=== PATIENT | male | born 1985 | race Caucasian/White ===

== ENCOUNTER 2024-04-06 12:10 | Observation (INO) | payer MEDICAID, SELFPAY ==
[2024-04-06] VITALS (12 sets, daily range): BP systolic 151–229; BP diastolic 93–135; PULSE 87–118; RESP 18–24; TEMP 36.3–36.7; O2SAT 96–100
--- NOTE | ~2024-04-06 | CT_ITS ---
EXAMINATION: CT thoracic lumbar wo con DATE: 04/06/2024 14:42 INDICATION: trauma + sciatica pain . TECHNIQUE: Computed tomography (CT) of the thoracic and lumbar spine was performed without intravenou s contrast. The dose-length product was 2255.68 mGy-cm. COMPARISON: None FINDINGS: THORACIC SPINE: Vertebral body alignment intact. Vertebral body heights preserved. Multilevel mild degenerative disc disease and facet arthropathy. No severe central canal or neural foraminal narrowing. No traumatic ma lalignment or fracture. Visualized lung parenchyma is clear. Bilateral adrenal adenomas. LUMBAR SPINE: 5 nonrib-bearing lumbar-type vertebral bodies. Pedicles intact. 5 mm retrolisthesis at L5-S1, presuma jennifer on a degenerative basis. Multilevel degenerative disc disease, severe at L5-S1. Moderate mid and lower lumbar facet arthropathy. Multilevel moderate bilateral neural foraminal narrowing secondary to degenerative changes. No severe central canal narrowing. IMPRESSION: No acute fracture or traumatic malalignment detected in the thoracic or lumbar spine Reviewed, dictated and finalized at location K.
--- NOTE | ~2024-04-06 | XR_ITS ---
EXAMINATION: XR chest 1V portable Exam Date/Time: 04/06/2024 14:15 CDT HISTORY: cp Comparison: None. RESULT: Lines, tubes, and devices: None. Lungs and pleura: Clear. Cardiomediastinal silhouette: Normal. Other: No acute osseous or upper abdominal finding. IMPRESSION: No acute cardiopulmonary process. Reviewed, dictated and finalized at location K.
--- NOTE | 2024-04-06 13:44 | ECG_ITS ---
Test Date: 2024-04-06 14:10:23 Measurements Intervals [place] Rate: 101 P: 24 ID: 170 QRS: 12 QRSD: 178 T: 38 QT: 393 QTc: 509 Interpretive Statements SINUS TACHYCARDIA LEFT BUNDLE BRANCH BLOCK [120+ ms QRS DURATION, 80+ ms Q/S IN V1/V2, 85+ ms R IN I/aVL/V5/V6] No previous ECG available for comparison Electronically Signed On 04-06-2024 16:25:21 CDT by Marcos Brothers M.D.
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
[2024-04-06 14:03] LABS: Basophils Absolute Auto 0.1 K/mm3 (0.0-0.1); Basophils Percent Auto 0.7 % (0.2-1.2); Eosinophils Absolute Auto 0.2 K/mm3 (0-0.3); Eosinophils Percent Auto 2.2 % (0-4.4); Hematocrit 46.8 % (42.0-52.0); Hemoglobin 16.2 g/dL (14.0-18.0); Immature Granulocyte Absolute 0.01 K/mm3 (0.00-0.031); Immature Granulocyte Percent A 0.1 % (0-0.5); Lymphocytes Percent Auto 18.4 % (18.3-44.2); Mean Corpuscular HGB Conc 34.6 g/dl (32-36); Mean Corpuscular Hemoglobin 30.6 pg (26-34); Mean Corpuscular Volume 88.5 fl (80-100); Mean Platelet Volume 12.4 fl (7.4-10.4); Monocytes Absolute Auto 0.5 K/mm3 (0.1-0.6); Monocytes Percent Auto 5.9 % (2.6-8.5); Neutrophils Absolute Auto 6.3 K/mm3 (1.3-6.7); Neutrophils Percent Auto 72.7 % (45.5-73.1); Platelet Count Result 170 k/mm3 (150-375); Red Blood Count 5.29 M/mm3 (4.6-6.20); White Blood Count 8.7 K/mm3 (4.5-10.0)
--- NOTE | 2024-04-06 14:10 | PC.NURSE ---
while in room doing assessment regarding sciatica pt reports he just moved here from [place] pt reports he is out of all medications. Pt then goes into extensive medical history reported elvated BP previous pacemaker then pacemaker removed due to infected leads. Pt reports he was on Pallative care in [place] regarding CHF
[2024-04-06 14:15] LABS: Alanine Aminotransferase 25 U/L (6-50); Albumin Level 4.4 g/dL (3.5-5.1); Alkaline Phosphatase 66 U/L (38-126); Anion Gap 7 mmol/L (4-12); Aspartate Amino Transferase 25 U/L (17-59); Bilirubin,Total 0.7 mg/dL (0.2-1.3); Blood Urea Nitrogen 9 mg/dL (9-20); Calcium 8.8 mg/dL (8.4-10.2); Carbon Dioxide 27 mmol/L (22-30); Chloride 106 mmol/L (98-107); Estimated CRCL calculation 180 ml/min; Estimated Glomerular Filt Rate > 60; Glucose 113 mg/dL (65-110); Potassium 3.4 mmol/L (3.4-5.0); Sodium 140 mmol/L (137-145)
[2024-04-06 14:26] LABS: NT Pro B Type Natriuretic Pept 308 pg/mL (19.9-100); Troponin I 0.012 ng/mL (0.000-0.034)
[2024-04-06 14:37] LABS: D Dimer < 0.27 ug/mL (<0.48)
[2024-04-06] MEDS: MORPHINE SULFATE (*CRX) 4 MG/ML INJ IV PUSH (15:09)
--- NOTE | 2024-04-06 15:18 | ECG_ITS ---
Test Date: 2024-04-06 15:23:35 Measurements Intervals [place] Rate: 109 P: 13 UT: 172 QRS: 2 QRSD: 172 T: 51 QT: 389 QTc: 525 Interpretive Statements SINUS TACHYCARDIA LEFT BUNDLE BRANCH BLOCK [120+ ms QRS DURATION, 80+ ms Q/S IN V1/V2, 85+ ms R IN I/aVL/V5/V6] Compared to ECG 04/06/2024 14:10:23 No significant changes Electronically Signed On 04-06-2024 16:25:35 CDT by Marcos Brothers M.D.
--- NOTE | 2024-04-06 15:27 | PC.NURSE ---
pt began having dull midsternal chest pain, patient visibly uncomfortable and having increased work of breathing. EKG ordered and showed to Dr. Gold.
[2024-04-06] MEDS: LORazepam INJ (*CRX) 2 MG/ML VIAL 0.5 MG IV PUSH (15:43)
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
[2024-04-06 20:52] LABS: Troponin I 0.016 ng/mL (0.000-0.034)
[2024-04-06] MEDS: MAGNESIUM OXIDE 400 MG TABLET PO (23:27)
[2024-04-06] MEDS: CYCLOBENZAPRINE HCL 10 MG TABLET PO (23:27)
[2024-04-06] MEDS: ASPIRIN 81 MG ENTERIC TABLET PO (23:28)
[2024-04-06] MEDS: FUROSEMIDE 20 MG TABLET PO (23:28)
[2024-04-06] MEDS: hydrALAZINE HCL 50 MG TABLET PO (23:28)
[2024-04-06] MEDS: WATER FOR IRRIGATION, STERILE 500 ML BOTTLE (23:29)
[2024-04-06] MEDS: MICONAZOLE NITRATE 2% CREAM 30 GM TUBE 1 APPLIC TOPICAL (23:29)
[2024-04-06] MEDS: LORazepam (*CRX) 1 MG TABLET PO (23:29)
[2024-04-06] MEDS: SACUBITRIL/VALSARTAN 97-103 MG TABLET 1 TAB PO (23:29)
[2024-04-06] MEDS: HYDROcodone/acetaminophen (*CRX) 10-325 MG TABLET 1 TAB PO (23:32)
[2024-04-07] VITALS (12 sets, daily range): BP systolic 120–169; BP diastolic 61–96; PULSE 71–132; RESP 12–23; TEMP 36.1–36.2; O2SAT 94–98
[2024-04-07 00:11] LABS: Troponin I 0.019 ng/mL (0.000-0.034)
[2024-04-07 01:46] LABS: Add Urine Microscopic? YES; Appearance Urine Clear (Clear); Bacteria Urine 4+ /hpf; Bilirubin Urine Negative (Negative); Blood Urine Negative (Negative); Color Urine Yellow (Yellow); Glucose Urine UA Negative (Negative); Ketones Urine Negative (Negative); Leukocyte Esterase Ur Trace LEU/UL (Negative); Need Manual Microscopic Reviewed; Nitrate Urine Negative (Negative); Non Pathogenic Casts 0-2; Protein Urine Negative (Negative); RBC Urine 0-2 /hpf (0-2); Specific Grav Ur 1.013 (1.001-1.035); Squamous Epithelial Cell Urine None Seen /hpf (Few); Urobilinogen Urine 0.2 mg/dL (<2.0)
[2024-04-07 01:50] LABS: Amphetamine Screen Urine Negative (Negative); Barbiturate Screen Urine Negative (Negative); Benzodiazepines Screen Urine Negative (Negative); Cannabinoid Screen Urine Negative (Negative); Cocaine Screen Urine Negative (Negative); Methadone Screen Urine Negative (Negative); Opiate Screen Urine Positive (Negative); Phencyclidine Screen Urine Negative (Negative)
[2024-04-07 02:13] LABS: Influenza A QL RT-PCR Negative (Negative); Influenza B QL RT-PCR Negative (Negative); RSV RNA, RT-PCR Negative (Negative); SARS-CoV-2 RNA PCR Negative (Negative)
[2024-04-07 04:49] LABS: Glucose Point of Care 118 mg/dl (65-105)
[2024-04-07 04:55] LABS: Basophils Absolute Auto 0.1 K/mm3 (0.0-0.1); Basophils Percent Auto 0.6 % (0.2-1.2); Eosinophils Absolute Auto 0.3 K/mm3 (0-0.3); Eosinophils Percent Auto 3.4 % (0-4.4); Hemoglobin 14.8 g/dL (14.0-18.0); Immature Granulocyte Absolute 0.02 K/mm3 (0.00-0.031); Immature Granulocyte Percent A 0.2 % (0-0.5); Lymphocytes Absolute Auto 2.79 K/mm3 (0.9-3.2); Lymphocytes Percent Auto 31.9 % (18.3-44.2); Mean Corpuscular HGB Conc 33.6 g/dl (32-36); Mean Corpuscular Hemoglobin 30.3 pg (26-34); Mean Corpuscular Volume 90.2 fl (80-100); Mean Platelet Volume 12.5 fl (7.4-10.4); Monocytes Absolute Auto 0.6 K/mm3 (0.1-0.6); Monocytes Percent Auto 6.7 % (2.6-8.5); Neutrophils Percent Auto 57.2 % (45.5-73.1); Platelet Count Result 154 k/mm3 (150-375); Red Blood Count 4.88 M/mm3 (4.6-6.20); Red Cell Distribution Width 14.3 % (11.5-14.5); White Blood Count 8.8 K/mm3 (4.5-10.0)
[2024-04-07 05:12] LABS: Alanine Aminotransferase 22 U/L (6-50); Albumin Level 3.7 g/dL (3.5-5.1); Alkaline Phosphatase 52 U/L (38-126); Anion Gap 5 mmol/L (4-12); Aspartate Amino Transferase 22 U/L (17-59); Blood Urea Nitrogen 10 mg/dL (9-20); Calcium 8.5 mg/dL (8.4-10.2); Carbon Dioxide 31 mmol/L (22-30); Chloride 103 mmol/L (98-107); Estimated CRCL calculation 204 ml/min; Estimated Glomerular Filt Rate > 60; Glucose 98 mg/dL (65-110); Sodium 139 mmol/L (137-145)
[2024-04-07 05:27] LABS: Hemoglobin A1C 5.3 % (<5.7)
[2024-04-07 05:37] LABS: Cortisol Random 1.19 ug/dL
[2024-04-07] MEDS: CYCLOBENZAPRINE HCL 10 MG TABLET PO ×3 (06:00→20:22)
[2024-04-07 08:45] LABS: Glucose Point of Care 95 mg/dl (65-105)
[2024-04-07] MEDS: POTASSIUM CHLORIDE 20 MEQ ER TABLET PO (08:47)
[2024-04-07] MEDS: EMTRICITABINE-TENOFOVIR 100 MG-150 MG TABLET 2 TAB PO (08:47)
[2024-04-07] MEDS: SPIRONOLACTONE 25 MG TABLET PO (08:50)
[2024-04-07] MEDS: LORazepam (*CRX) 1 MG TABLET PO ×3 (08:50→17:35)
[2024-04-07] MEDS: DULoxetine HCL 30 MG CAPSULE.DR PO (08:50)
[2024-04-07] MEDS: amLODIPine BESYLATE 10 MG TABLET PO (08:50)
[2024-04-07] MEDS: MAGNESIUM OXIDE 400 MG TABLET PO ×2 (08:50→17:35)
[2024-04-07] MEDS: predniSONE 20 MG TABLET 40 MG PO (08:50)
[2024-04-07] MEDS: FUROSEMIDE 20 MG TABLET PO ×2 (08:50→17:35)
[2024-04-07] MEDS: LORATADINE 10 MG TABLET PO (08:50)
[2024-04-07] MEDS: TAMSULOSIN HCL 0.4 MG CAPSULE PO (08:51)
[2024-04-07] MEDS: SACUBITRIL/VALSARTAN 97-103 MG TABLET 1 TAB PO ×2 (08:51→20:22)
[2024-04-07] MEDS: ASPIRIN 81 MG ENTERIC TABLET PO ×2 (08:51→17:35)
[2024-04-07] MEDS: LIDOCAINE 5% PATCH 1 PATCH TRANSDERM (08:51)
[2024-04-07] MEDS: CHOLECALCIFEROL 5,000 UNITS TABLET 5000 UNITS PO (08:51)
--- NOTE | 2024-04-07 08:53 | PM.IMPN ---
Progress Note: A&P Assessment and Plan (1) Syncope: Qualifiers: Syncope type: unspecified Qualified Code(s): R55 - Syncope and collapse Code(s): R55 - Syncope and collapse Status: Acute Assessment and Plan: - EKG, initial: Sinus tachycardia, rate 101, left bundle-branch block. No previous available for comparison. - EKG, repeat (1): No significant changes when compared to prior, rate 109. - CXR: No acute cardiopulmonary process. - Troponin: 0.012 -> 0.016, and 3rd troponin ordered - add TSH, UA, viral PCR, UDS - no echo on file, ordered - previously told his syncopal episodes were secondary to his CHF - telemetry monitoring (2) Sciatica: Qualifiers: Laterality: left Qualified Code(s): M54.32 - Sciatica, left side Code(s): M54.30 - Sciatica, unspecified side Status: Acute Assessment and Plan: - analgesics p.r.n. - thoracic/lumbar CT: No acute fracture or traumatic malalignment detected in the thoracic or lumbar spine. Multilevel degenerative disc disease. - will trial lidocaine patch and prednisone course (3) Hypertension, uncontrolled: Code(s): I10 - Essential (primary) hypertension Status: Acute Assessment and Plan: - chronic, currently 189/116 - continue home medications: start in stepped fashion to avoid hypotension. Hydralazine 100 mg b.i.d., will start as 50 mg q.i.d. this evening Entresto 97-103 b.i.d., start this evening Amlodipine 10 mg daily, start tomorrow morning Coreg 25 mg b.i.d., start tomorrow evening - takes his BP 3 times per day, 3 ways (sitting/standing/laying) and has instructions on what to take or what to hold based off those numbers - monitor 04/07 based on his report- hydralazine was causing the most side effects for him with feeling so dizzy, he would have to sit down in order not to pass out. We will hold on and not restart hydralazine at this time as entresto, coreg would be sufficient. May even hold amlodipine as well and start on jardiance 10 mg as standard of care for CHF pts. (4) Hypoglycemia: Code(s): E16.2 - Hypoglycemia, unspecified Status: Acute Assessment and Plan: - check A1C - glucose ACHS - hypoglycemia protocol in place - check random cortisol (5) Apnea: Code(s): R06.81 - Apnea, not elsewhere classified Status: Acute Assessment and Plan: - continue home BiPAP (6) Hypokalemia: Code(s): E87.6 - Hypokalemia Status: Acute Assessment and Plan: -po replacement - monitor with daily labs Plan Patient is requesting a referral to specialist he saw previously ([facility], pulmonology, or ec teacher), initially started care with [facility] based off of recommendation of his neighbor. However does not have appointment until August, no appointments available sooner than this. Requesting refills of his medications to tide him over to this appointment. May also need a care coordination consultation to set up palliative care in [place], was on this in [place]. After shared decision making with patient, he is requesting no further workup for the syncopal events given the known congestive heart failure which has previously caused these events. Diet: Heart healthy GI Prophylaxis: Not currently indicated DVT Prophylaxis: SCDs Lines: Peripheral Code Status: DNR Time Spent With Patient Time with patient: Greater than 35 minutes Subjective Date/time seen: 04/07/24 08:53 Interval history: retrieved from H/P: 38 y/o M presents here with ground-level fall with PMH of CHF, HTN, TIA, pacemaker (reversed secondary to infection in 2022), cardiomyopathy, COPD, diverticulosis, DDD, sciatica, anemia, hypoglycemia, blind in right eye, and anxiety/depression. The patient presents here from home via personal vehicle (neighbor drove him, unable to drive due to blindness in his left eye and due to frequen
[2024-04-07] MEDS: FLUTICASONE PROPIONATE 0.05% NA SPR 16 GM BTL (*BKC) 2 SPRAY NASAL (08:54)
[2024-04-07] MEDS: MICONAZOLE NITRATE 2% CREAM 30 GM TUBE 1 APPLIC TOPICAL ×2 (08:59→20:22)
[2024-04-07] MEDS: hydrALAZINE HCL 50 MG TABLET PO (09:02)
[2024-04-07 12:22] LABS: Glucose Point of Care 143 mg/dl (65-105)
[2024-04-07 17:15] LABS: Glucose Point of Care 194 mg/dl (65-105)
[2024-04-07] MEDS: carvediloL 25 MG TABLET PO (20:22)
[2024-04-07] MEDS: HYDROcodone/acetaminophen (*CRX) 10-325 MG TABLET 1 TAB PO (20:51)
[2024-04-07 21:10] LABS: Glucose Point of Care 143 mg/dl (65-105)
[2024-04-08] VITALS (14 sets, daily range): BP systolic 121–140; BP diastolic 69–81; PULSE 60–84; RESP 11–20; TEMP 36.6–36.8; O2SAT 92–97
--- NOTE | 2024-04-08 | ECHO_ITS ---
Patient Info Name: Jesus Alberto Olivas Age: 38 years : 1985 Gender: Male Ht: 70 in Wt: 410 lbs BSA: 3.14 m2 HR: 74 bpm BP: 121 / 70 mmHg Heart Rhythm: Sinus Rhythm Technical Quality: Poor Exam Date: 04/08/2024 9:44 AM Exam Location: Echo Lab Patient Status: Inpatient Admit Date: 04/06/2024 Staff Ordering Physician: Velma Benavides APRN Dirt Supervisor: Judith Shoemaker RDCS Attending Provider: Miah Herman MD Referring Physician: Kennedy FITZPATRICK; Exam Type: CA echo dop color flow w con Study Info Indications - syncope Complete two-dimensional, color flow and Doppler transthoracic echocardiogram is performed with contrast to opacify the left ventricle and to improve the deliniation of the left ventricle endocardial borders. Reason for Poor Study: poor echocardiographic windows Summary 1. Technically difficult echocardiogram because of obesity, definity contrast used to improve endocardial visualization. 2. Mildly reduced left ventricular systolic function with abnormal septal motion consistent with bundle branch block. 3. No apparent valvular dysfunction. Left Ventricle Left ventricular chamber dimension is normal. Left ventricular systolic function is mildly reduced, estimated at 45-50%. Left ventricular septal wall motion is abnormal with septal motion related to bundle branch block. The left ventricular diastolic function is indeterminate. Right Ventricle Right ventricular chamber dimension is normal. Left Atria Left atrial chamber dimension is normal. Right Atria Right atrial chamber dimension is not well visualized. Aortic Valve The aortic valve is normal. Pulmonic Valve The pulmonic valve is not well visualized. Mitral Valve The mitral valve has normal leaflets. Tricuspid Valve The tricuspid valve leaflets are not well visualized. Pericardium/Pleural The pericardium appears normal. Aorta The aortic root size at the sinus of Valsalva is normal. Left Ventricular Outflow Tract Name Value Normal LVOT Doppler LVOT Peak Gradient 2 mmHg LVOT Mean Gradient 1 mmHg LVOT VTI 13.00 cm LVOT VTI/AV VTI Ratio 0.59 Pulmonic Valve Name Value Normal PV Doppler PV Peak Gradient 4 mmHg Mitral Valve Name Value Normal MV Doppler MV Decel [place] 670.66 cm/s2 MV PHT 0 s MV Area (PHT) 5.88 cm2 4.00-5.00 MV Diastolic Function MV E Peak Velocity 86.56 cm/s MV A Peak Velocity 90.03 cm/s MV E/A 0.96 MV Decel Time
[2024-04-08] MEDS: CYCLOBENZAPRINE HCL 10 MG TABLET PO ×3 (05:26→19:55)
[2024-04-08 08:19] LABS: Glucose Point of Care 102 mg/dl (65-105)
[2024-04-08] MEDS: DULoxetine HCL 30 MG CAPSULE.DR PO (08:44)
[2024-04-08] MEDS: predniSONE 20 MG TABLET 40 MG PO (08:44)
[2024-04-08] MEDS: CHOLECALCIFEROL 5,000 UNITS TABLET 5000 UNITS PO (08:44)
[2024-04-08] MEDS: SPIRONOLACTONE 25 MG TABLET PO (08:44)
[2024-04-08] MEDS: MAGNESIUM OXIDE 400 MG TABLET PO ×2 (08:44→17:28)
[2024-04-08] MEDS: POTASSIUM CHLORIDE 20 MEQ ER TABLET PO (08:44)
[2024-04-08] MEDS: TAMSULOSIN HCL 0.4 MG CAPSULE PO (08:45)
[2024-04-08] MEDS: LORATADINE 10 MG TABLET PO (08:45)
[2024-04-08] MEDS: ASPIRIN 81 MG ENTERIC TABLET PO ×2 (08:45→17:29)
[2024-04-08] MEDS: carvediloL 25 MG TABLET PO ×2 (08:45→19:55)
[2024-04-08] MEDS: EMPAGLIFLOZIN 10 MG TABLET PO (08:45)
[2024-04-08] MEDS: SACUBITRIL/VALSARTAN 97-103 MG TABLET 1 TAB PO ×2 (08:45→19:55)
[2024-04-08] MEDS: FUROSEMIDE 20 MG TABLET PO ×2 (08:45→17:29)
[2024-04-08] MEDS: EMTRICITABINE-TENOFOVIR 100 MG-150 MG TABLET 2 TAB PO (08:45)
[2024-04-08] MEDS: LIDOCAINE 5% PATCH 1 PATCH TRANSDERM (08:46)
[2024-04-08] MEDS: LORazepam (*CRX) 1 MG TABLET PO ×3 (08:46→17:28)
[2024-04-08] MEDS: MICONAZOLE NITRATE 2% CREAM 30 GM TUBE 1 APPLIC TOPICAL ×2 (08:48→23:00)
[2024-04-08] MEDS: FLUTICASONE PROPIONATE 0.05% NA SPR 16 GM BTL (*BKC) 2 SPRAY NASAL (08:48)
[2024-04-08] MEDS: PERFLUTREN LIPID MICROSPHERES 1.5 ML VIAL DILUTED TO 10 ML TOTAL VOLUME IV PUSH (09:30)
--- NOTE | 2024-04-08 10:14 | P.DS_ITS ---
DS: Summary Time Spent with Patient Time attestation: Total time spent providing and/or coordinating discharge services: DS: Data Data Completed and Pending Labs on day of discharge: Labs from last 24 hours 04/08/24 04/07/24 04/07/24 08:10 20:45 17:02 POC Capillary Glucose 102 143 H 194 H 04/07/24 12:13 POC Capillary Glucose 143 H Discharge Plan Discharge Consulting providers: Obdulio Wagner Discharge Medications: No Action aspirin 81 mg PO BID Flonase 50 mcg intranasal BID Entresto 97 - 103 mg PO BID cetirizine 10 mg PO BID cyclobenzaprine 10 mg PO TID duloxetine 30 mg PO DAILY spironolactone 25 mg PO DAILY carvedilol 25 mg PO BID lorazepam 1 mg PO TID amlodipine 10 mg PO DAILY Hydralazide 100 mg PO BID furosemide 20 mg PO BID Latuda 40 mg PO BID emtricitabine-tenofovir (TDF) 300 mg PO DAILY Magnesium (oxide/AA chelate) 400 mg PO BID potassium Cl-calcium phos-mag 20 meq PO DAILY tamsulosin 0.4 mg PO DAILY Vitamin B-12 1,000 mg PO DAILY Vitamin D3 50,000 units PO DAILY albuterol 2 puff PRN albuterol sulfate 2.5 mg TID hydrocodone-acetaminophen 10 mg PO TID Voltaren 1 % topical PRN clotrimazole 1 mg topical PRN (DME) Accu-Chek Guide test strips Date of admission: 04/06/24 16:07 Primary Care Provider: PHYSICIAN,ASSISTANT CREDIT MANAGER Admitting Provider: Miah Herman Attending physician on admission: Miah Herman Condition: Stable
[2024-04-08 10:55] LABS: Anion Gap 7 mmol/L (4-12); Blood Urea Nitrogen 14 mg/dL (9-20); Carbon Dioxide 31 mmol/L (22-30); Chloride 101 mmol/L (98-107); Estimated CRCL calculation 180 ml/min; Estimated Glomerular Filt Rate > 60; Glucose 83 mg/dL (65-110); Magnesium 2.2 mg/dL (1.6-2.3); Potassium 3.1 mmol/L (3.4-5.0); Sodium 139 mmol/L (137-145)
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
[2024-04-08 12:00] LABS: Glucose Point of Care 117 mg/dl (65-105)
--- NOTE | 2024-04-08 12:03 | IVDEFINITY ---
Prior to administration of IV Definity the patient was educated on the risks and benefits of the imaging enhancing agent including potential adverse side effects. The patient verbalized understanding. Allergies were verified. No exclusion criteria were identified and at least one of the following inclusion criteria were met: 1) physician request, 2) patient technically difficult to image (per the [place] [employer]chocardi[employer] guidelines of two or more segments not discernable within the apical view), or 3) questionable left ventricular function. ?
[2024-04-08] MEDS: NITROFURANTOIN MONOHYD MACROCR 100 MG CAP PO ×2 (12:46→19:56)
[2024-04-08] MEDS: POTASSIUM CHLORIDE 10 MEQ ER TABLET 30 MEQ PO ×2 (12:46→17:28)
--- NOTE | 2024-04-08 13:18 | PM.CNCAR ---
Assessment and Plan Assessment and plan (1) Heart failure: Code(s): I50.9 - Heart failure, unspecified Status: Acute Plan 1. Chronic systolic heart failure NYHA II, Stage C TTE (04/08/2024) LViDD 6.38, EF 45-50% Echo pending today Nonischemic cardiomyopathy It is my clinical impression that Mr. Granda has nonischemic cardiomyopathy the etiology of which is unclear his thyroid function is normal. He is on Truvada but apparently it is for prophylaxis for HIV. He never had a cardiac MRI in the past -diuretics: On Lasix 20 mg twice daily. Consider switching him to 40 mg once a day at 20 mg once a day -ARNI: Continue Entresto 97-103 po BID - BB: Continue carvedilol 25 mg twice a day - AA: Continue spironolactone, 25 mg once a day check potassium levels week after discharge - SGLT2 Inhibitors: Increase dose of Jardiance to 25 mg once daily -continue above guideline directed medical therapy what failure -his QRS is broad and I think he may benefit from a BiVICD. Initially discussed and we will revisit this discussion in the clinic -consider sending serum ferritin, HIV serology History of Present Illness History of Present Illness Consult date/time: 04/08/24 13:18 Mr Granda is a pleasant 38-year-old gentleman who recently moved to [place] from [place]. 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 He was diagnosed to have congestive heart failure and nonischemic cardiomyopathy in 2019 in [place]. He underwent cardiac catheterization which as per him showed normal coronaries. He underwent a Bi V ICD implantation in 2019 which was subsequently removed in 2022 after got infected. As per the patient is initially it was 19% which recovered after a Bi V and subsequently his last EF was 45%. That is an echo pending today He is admitted with what appears to be a fall secondary to pain due to sciatica Cardiology consulted to help in the management of his CHF and cardiomyopathy. He denies any chest pain Chronic stable dyspnea He denies any dizziness, palpitation, presyncope or syncope He denies any bleeding from any source Compliant with his medications He is currently trying to get medicated L&I to help with and chewing follow-up with Cardiology and to help with his medications Nonsmoker Rare alcohol intake No family history of CHF Male having sex with male Requesting physician: Sandy Moses APRN Consult reason: congestive heart failure Reason For Visit: fall two days ago [facility] Past Medical History Medical History (Updated 04/08/24 @ 12:08 by Seth Monet APRN) Anemia Anxiety and depression Apnea Cardiomyopathy CHF (congestive heart failure) COPD (chronic obstructive pulmonary disease) DDD (degenerative disc disease) Diverticulosis Heart failure History of pacemaker HTN (hypertension) Osteoarthritis Panic attacks Sciatica TIA (transient ischemic attack) UTI (urinary tract infection) Surgical History Surgical History History of intestinal surgery r/t abscess History of tonsillectomy and adenoidectomy Social History Social History Smoking status: Never smoker Second hand tobacco smoke exposure: Yes Alcohol intake: current Drinks per week: 0 Substance use: never Substance use type: does not use Do You Feel Safe in your Home?: Yes Lack of Transportation: YES Lack of Food: Often True Current Housing: I Do Not Have Housing Concerned About Future Housing: No Difficulty Paying Gas/Electric Bills: YES Difficulty Paying for Meds: YES Currently Unemployed: YES Education: High School Diploma/GED Difficulty w/ Childcare or Family Care: No Spiritual care concerns: Yes (Anab[employer]ist, last rights upon ) Meds Home Medications and Al
[2024-04-08 16:58] LABS: Glucose Point of Care 149 mg/dl (65-105)
[2024-04-08] MEDS: HYDROcodone/acetaminophen (*CRX) 10-325 MG TABLET 1 TAB PO (19:55)
[2024-04-09] VITALS: PULSE 64
[2024-04-09 04:00] VITALS: PULSE 67
[2024-04-09 06:00] VITALS: BP 114/55; PULSE 67; RESP 22; TEMP 36.7; O2SAT 97
[2024-04-09] MEDS: CYCLOBENZAPRINE HCL 10 MG TABLET PO ×2 (06:01→13:40)
[2024-04-09 07:26] LABS: Anion Gap 7 mmol/L (4-12); Blood Urea Nitrogen 16 mg/dL (9-20); Calcium 8.9 mg/dL (8.4-10.2); Carbon Dioxide 29 mmol/L (22-30); Chloride 103 mmol/L (98-107); Estimated CRCL calculation 204 ml/min; Estimated Glomerular Filt Rate > 60; Glucose 92 mg/dL (65-110); Potassium 3.6 mmol/L (3.4-5.0); Sodium 139 mmol/L (137-145)
[2024-04-09 08:04] VITALS: PULSE 62
[2024-04-09 08:04] LABS: HIV 1/2 Ab P24 Ag Result Negative (Negative)
[2024-04-09] MEDS: HYDROcodone/acetaminophen (*CRX) 10-325 MG TABLET 1 TAB PO (08:37)
[2024-04-09 08:38] LABS: Glucose Point of Care 88 mg/dl (65-105)
[2024-04-09] MEDS: CHOLECALCIFEROL 5,000 UNITS TABLET 5000 UNITS PO (08:39)
[2024-04-09] MEDS: SPIRONOLACTONE 25 MG TABLET PO (08:39)
[2024-04-09] MEDS: SACUBITRIL/VALSARTAN 97-103 MG TABLET 1 TAB PO (08:39)
[2024-04-09] MEDS: LORATADINE 10 MG TABLET PO (08:39)
[2024-04-09] MEDS: ASPIRIN 81 MG ENTERIC TABLET PO (08:39)
[2024-04-09] MEDS: FUROSEMIDE 20 MG TABLET PO (08:39)
[2024-04-09] MEDS: EMTRICITABINE-TENOFOVIR 100 MG-150 MG TABLET 2 TAB PO (08:39)
[2024-04-09] MEDS: DULoxetine HCL 30 MG CAPSULE.DR PO (08:39)
[2024-04-09] MEDS: NITROFURANTOIN MONOHYD MACROCR 100 MG CAP PO (08:39)
[2024-04-09] MEDS: LORazepam (*CRX) 1 MG TABLET PO ×2 (08:40→13:40)
[2024-04-09] MEDS: FLUTICASONE PROPIONATE 0.05% NA SPR 16 GM BTL (*BKC) 2 SPRAY NASAL (08:40)
[2024-04-09] MEDS: carvediloL 25 MG TABLET PO (08:40)
[2024-04-09] MEDS: LIDOCAINE 5% PATCH 1 PATCH TRANSDERM (08:40)
[2024-04-09] MEDS: MAGNESIUM OXIDE 400 MG TABLET PO (08:40)
[2024-04-09] MEDS: predniSONE 20 MG TABLET 40 MG PO (08:40)
[2024-04-09] MEDS: TAMSULOSIN HCL 0.4 MG CAPSULE PO (08:40)
[2024-04-09] MEDS: EMPAGLIFLOZIN 25 MG TABLET PO (08:40)
[2024-04-09] MEDS: MICONAZOLE NITRATE 2% CREAM 30 GM TUBE 1 APPLIC TOPICAL (08:41)
[2024-04-09] MEDS: DICLOFENAC SODIUM 1% 100 GM GEL (*BKC) 1 APPLIC TOPICAL (08:41)
--- NOTE | 2024-04-09 11:41 | PM.PNCARD ---
Progress Note: A&P Assessment and Plan (1) Heart failure: Code(s): I50.9 - Heart failure, unspecified Status: Acute Plan 1. Chronic systolic heart failure NYHA II, Stage C TTE (04/08/2024) LViDD 6.38, EF 45-50% Nonischemic cardiomyopathy It is my clinical impression that Mr. Granda has nonischemic cardiomyopathy the etiology of which is unclear his thyroid function is normal. He is on Truvada but apparently it is for prophylaxis for HIV. He never had a cardiac MRI in the past -diuretics: On Lasix 20 mg twice daily. Consider switching him to 40 mg once a day at 20 mg once a day -ARNI: Continue Entresto 97-103 po BID - BB: Continue carvedilol 25 mg twice a day - AA: Continue spironolactone, 25 mg once a day check potassium levels week after discharge - SGLT2 Inhibitors: Increase dose of Jardiance to 25 mg once daily -continue above guideline directed medical therapy what failure -TTE (04/08/2024) EF 45-50%, no need for a BIv ICD - Follow-up with Cardiology as an outpatient - Cardiology will sign off. Please call us if there are any questions or concerns Subjective Date/time seen: 04/09/24 11:41 Interval history: No acute events overnight n good GDMT for HF Exam Const: General: comfortable, no acute distress, alert and awake Orientation/consciousness: patient oriented x3 HENMT: Head: normal to inspection Eyes: General: appearance normal, both eyes and all related structures Pupils: Equal, round and reactive pupils present Neck: Neck: normal visual inspection, supple and no JVD Carotids: normal carotid upstroke Resp: Effort & Inspection: normal respiratory effort Auscultation: clear to auscultation bilaterally Cardio: Rate: regular rate Rhythm: regular rhythm Heart sounds: S1 normal heart sound present, S2 normal heart sound present and no murmurs GI: Auscultation: normal bowel sounds Skin: General skin exam: normal color Neuro: General: patient oriented x3 Cranial nerves: Yes Equal, round and reactive pupils present Extrem: General: normal to inspection Psych: Appearance: grossly normal Mental Status: mental status grossly normal Objective Data Vital Signs Vital Signs: Vital Signs - 24 hr 04/08/24 14:00 04/08/24 12:00 04/08/24 16:00 Temperature 36.6 C Pulse Rate 81 84 81 Respiratory Rate 18 Blood Pressure 140/81 Pulse Oximetry 93 Oxygen Delivery 04/08/24 19:55 04/08/24 20:54 04/08/24 20:00 Temperature 36.8 C Pulse Rate 76 75 Respiratory Rate 20 Blood Pressure 135/69 Pulse Oximetry 94 Oxygen Delivery Room Air 04/08/24 20:00 04/09/24 04:00 04/09/24 00:00 Temperature Pulse Rate 81 67 64 Respiratory Rate Blood Pressure Pulse Oximetry Oxygen Delivery 04/08/24 23:00 04/09/24 06:00 04/09/24 08:35 Temperature 36.7 C Pulse Rate 75 67 Respiratory Rate 14 22 H Blood Pressure 114/55 L Pulse Oximetry 97 Oxygen Delivery Autopap Autopap 04/09/24 08:04 Temperature Pulse Rate 62 Respiratory Rate Blood Pressure Pulse Oximetry Oxygen Delivery Intake/Output Intake/Output: Intake & Output 04/06/24 04/07/24 04/08/24 04/09/24 23:59 23:59 23:59 23:59 Intake Total 240 1090 1770 1434 Output Total 400 Balance 790 043 2518 1434 Meds/Results Medications: Active Medications Generic Name Dose Route Start Last Admin Trade Name Freq PRN Reason Stop Dose Admin Hydrocodone Bitart/Acetaminophen 1 tab 04/06/24 19:16 04/09/24 08:37 Hydrocodone/Acetaminophen (*Crx) 10-325 Mg Tablet PO 1 tab TID PRN Administration Pain Rated 7-10 Albuterol 2 puff 04/06/24 19:16 Albuterol Sulfate (*Sp) Aerosol 1 Puff INHALATION Q6HRT PRN Shortness Of Breath Aspirin 81 mg 04/06/24 19:30 04/09/24 08:39 Aspirin 81 Mg Enteric Tablet PO 81 mg BID LAAN Administration Carvedilol 25 mg 04/07/24 21:00 04/09/24 08:40 Carvedilol 25 Mg Tablet PO 25 mg Q12HR LANA Ad
[2024-04-09 11:54] LABS: Glucose Point of Care 157 mg/dl (65-105)
[2024-04-09 12:05] VITALS: PULSE 69
[2024-04-09 13:58] VITALS: BP 124/72; PULSE 73; RESP 18; TEMP 35.6; O2SAT 96
[2024-04-09] MEDS: INFLUENZA TRIVALENT VACCINE 45 MCG/0.5 ML SYRINGE IM (15:39)
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
== END 2024-04-09 16:32 | disposition home or self-care (01) ==
LOC: ANHED 15:49 → ANH3MED 04-08 12:12
PROVIDERS: Nurse Practitioner Family; Student in an Organized Health Care Education/Training Program; Admitting Provider Internal Medicine; Emergency Provider Emergency Medicine; Visit Provider General Practice
DX: R55 Syncope and collapse (principal); M54.32 Sciatica, left side; N39.0 Urinary tract infection, site not specified; I11.0 Hypertensive heart disease with heart failure; I50.22 Chronic systolic (congestive) heart failure; I42.8 Other cardiomyopathies; E87.6 Hypokalemia; E16.2 Hypoglycemia, unspecified; R06.81 Apnea, not elsewhere classified; F41.9 Anxiety disorder, unspecified; W18.39XA Other fall on same level, initial encounter; J44.9 Chronic obstructive pulmonary disease, unspecified; Z66 Do not resuscitate; Z86.73 Personal history of transient ischemic attack (TIA), and cerebral infarction without residual deficits; Z91.51 Personal history of suicidal behavior; Z11.4 Encounter for screening for human immunodeficiency virus [HIV]; Z23 Encounter for immunization; Z20.822 Contact with and (suspected) exposure to COVID-19
CPT/HCPCS: 36415; 71045; 72128; 72131; 80048; 80053; 80307; 81001; 82533; 82728; 82948; 83036; 83735; 83880; 84443; 84484; 85025; 85380; 86703; 87086; 87637; 90471; 90656; 93005; 96374; 96375; 99285; A9270; C8929; G0008; G0378; G0379; G0432; J2060; J2270; J7512; Q9957

== ENCOUNTER 2025-01-28 10:43 | Emergency (ER) | payer OTHER, SELFPAY ==
[2025-01-28] VITALS (8 sets, daily range): BP systolic 107–140; BP diastolic 71–95; PULSE 87–104; RESP 13–19; TEMP 36.9; O2SAT 94–96
--- NOTE | ~2025-01-28 | XR_ITS ---
CHEST RADIOGRAPH, PA AND LATERAL CLINICAL HISTORY: HX OF SYNCOPAL EPISODES, HX OF CHF . COMPARISON: 04/06/2024 TECHNIQUE: PA and lateral views of the chest. FINDINGS The cardiomediastinal silhouette is unremarkable. The lungs are clear. IMPRESSION: No focal infiltrate or effusion. Reviewed, dictated and finalized at location A.
--- NOTE | 2025-01-28 10:51 | ECG_ITS ---
Test Date: 2025-01-28 10:47:00 Measurements Intervals [place] Rate: 89 P: 29 ID: [id number] QRS: 11 QRSD: 178 T: 75 QT: 397 QTc: 483 Interpretive Statements SINUS RHYTHM WITH FIRST DEGREE AV BLOCK LEFT BUNDLE BRANCH BLOCK Electronically Signed On 01-28-2025 17:28:22 CDT by Richard Stafford D.O
[2025-01-28 11:14] LABS: Hematocrit 45.8 % (42.0-52.0); Hemoglobin 15.4 g/dL (14.0-18.0); Immature Granulocyte Percent A 0.1 % (0-0.5); Lymphocytes Absolute Auto 2.24 K/mm3 (0.9-3.2); Mean Corpuscular HGB Conc 33.6 g/dl (32-36); Mean Corpuscular Hemoglobin 30.3 pg (26-34); Mean Corpuscular Volume 90.0 fl (80-100); Nucleated Red Blood Cells Absolute Auto 0.000 K/mm3 (0.0-0.012); Nucleated Red Blood Cells Perc 0.0 % (0.0-0.2); Platelet Count Result 153 k/mm3 (150-375); Red Blood Count 5.09 M/mm3 (4.6-6.20); White Blood Count 8.9 K/mm3 (4.5-10.0)
[2025-01-28 11:37] LABS: Alanine Aminotransferase 30 U/L (6-50); Albumin Level 4.3 g/dL (3.5-5.1); Alkaline Phosphatase 51 U/L (38-126); Anion Gap 6 mmol/L (4-12); Aspartate Amino Transferase 26 U/L (17-59); Bilirubin,Total 1.0 mg/dL (0.2-1.3); Blood Urea Nitrogen 16 mg/dL (9-20); Calcium 9.5 mg/dL (8.4-10.2); Carbon Dioxide 26 mmol/L (22-30); Chloride 101 mmol/L (98-107); Estimated CRCL calculation 130 ml/min; Estimated Glomerular Filt Rate > 60; Glucose 109 mg/dL (65-110); Potassium 4.0 mmol/L (3.4-5.0); Sodium 133 mmol/L (137-145); Total Protein 7.3 g/dL (6.3-8.2)
--- OUTSIDE RECORDS SUMMARY | 2025-01-28 11:38 | XMS_ITS | Referral Summary ---
Author Organization [facility] [address] Address [address] 5[address] [place] [address] Care Team Providers Care Product Engineer Name Role Phone Ronald Capps MD Primary Care Provider + Sean Tobin MD Unavailable Encounters Date Type Department Care Team Description 01/24/2025 Telephone [facility] Metabolic Weight Management [facility] Office Building 4, [address] [place] [phone] Amber Bragg, COURT ADMINISTRATOR Prior Auth 01/24/2025 3:00 PM CDT Office Visit [facility] Metabolic Weight Management [facility] Office Building 4, [address] [place] [phone] Kayleigh Piña MD Encounter for weight management (Primary Dx); Metabolic syndrome; Class 3 severe obesity with serious comorbidity and body mass index (BMI) of 50.0 to 59.9 in adult; Chronic prescription opiate use; Chronic systolic congestive heart failure (HCC); Mixed hyperlipidemia; DYLON (obstructive sleep apnea); Prediabetes; Primary hypertension 01/20/2025 Results Follow-Up [facility] Metabolic Weight Management [facility] Office Building 4, [address] [place] [phone] Jessie More PA US RUQ 01/20/2025 9:20 AM CDT - 01/20/2025 11:59 PM CDT Hospital Encounter [facility] [address] [place] [address] Class 3 severe obesity with serious comorbidity and body mass index (BMI) of 50.0 to 59.9 in adult, unspecified obesity type; Metabolic and nutritional disorder Discharge Disposition: Discharge to home or self care 12/23/2024 Telephone [facility] [address] [place] [address] Outpatient Health 4th Floor [address] [place] [address] Carlos SmithNorma 12/23/2024 1:00 PM CDT Telemedicine [facility] Metabolic Weight Management [facility] Office Building 4, [address] [place] [address] Jessie More PA Class 3 severe obesity with serious comorbidity and body mass index (BMI) of 50.0 to 59.9 in adult, unspecified obesity type (Primary Dx); DYLON (obstructive sleep apnea); Metabolic and nutritional disorder; Encounter for weight management; Encounter for exercise counseling; Dietary counseling and surveillance; Chronic systolic congestive heart failure (HCC); Primary hypertension; LBBB (left bundle branch block) 11/13/2024 Results Follow-Up [facility] Primary Care at [address] [phone] Ronald Capps MD HIV 1/2 Antibody plus p24 Antigen Blood, HSV 1 IgG Antibody Blood, HSV 2 IgG Antibody Blood, Additional followed-up results: 16 11/12/2024 11:30 AM CDT Lab [facility] Outpatient Lab - Outpatient Center at [address] [phone] At high risk for exposure to HIV on Prep; Prediabetes; Screening for thyroid disorder; Mixed hyperlipidemia; Annual physical exam; B12 deficiency; Vitamin D deficiency; Hypomagnesemia 11/12/2024 11:00 AM CDT Office Visit [facility] Primary Care at [address] [phone] Ronald Capps MD Hx of Retinal detachment with recent vision changes (Primary Dx); Encounter to establish care; Class 3 severe obesity with serious comorbidity and body mass index (BMI) of 50.0 to 59.9 in adult, unspecified obesity type; At high risk for exposure to HIV on Prep; Primary hypertension 11/07/2024 Telephone [facility] Gastroenterology at [address] [place] [address] Reina Castro MA 11/07/2024 Telephone [facility] Gastroenterology at [address] [place] [address] Bettina Singleton MA 11/07/2024 9:50 AM CDT Anesthesia Event [address] [address] Gordon Neves DO 11/07/2024 9:30 AM CDT - 11/07/2024 10:00 AM CDT Surgery [address] [address] Reece Swain DO COLONOSCOPY 11/07/2024 8:00 AM CDT - 11/07/2024 11:22 AM CDT Hospital Encounter [address] [address] Reece Swain, Discharge Disposition: Discharge to home or self care 11/05/2024 Orders Only [facility] Primary Care at [address] [phone] Ronald Capps MD 11/04/2024 Orders Only [facility] Primary Care at [address] [phone] Ronald Capps MD At high risk for exposure to HIV on Prep (Primary Dx); Annual physical exam; Prediabetes; Screening for thyroid disorder; Mixed hyperlipidemia; Hypomagnesemia; Frequent UTI; Chronic prescription opiate use; Vitamin D deficiency; B12 deficiency from Last 3 Months Allergies Active Allergy Reactions Criticality Noted Date Comments Nilo Inhibitors Cough Low 04/15/2024 Iodinated Contrast Media Anaphylaxis High 04/15/2024 Throat was closing up and pt could not breath and pt was intubated due to CT contrast in 2017 at [facility] in [place] Penicillins Anaphylaxis High 04/15/2024 Shrimp Shortness of breath High 04/15/2024 Streptococcus Pneumoniae Anaphylaxis High 04/15/2024 Medications aspirin 81 mg enteric coated tablet Take 1 tablet (81 mg total) by mouth 2 (two) times a day Active sacubitriL-valsar collins (ENTRESTO) 97-103 mg tabletIndications :chronic heart failure Take 1 tablet by mouth 2 (two) times a day 180 tablet 3 Active magnesium oxide (MAG-OX) 400 mg (241.3 mg elemental magnesium) tabletIndications :Chronic systolic congestive heart failure (HCC) Take 1 tablet (400 mg total) by mouth 2 (two) times a day 180 tablet 3 Active fluticasone propionate (FLONASE) 50 mcg/actuation nasal sprayIndications: Medication refill Administer 2 sprays into each nostril daily [address] each [address] (CYMBALTA) 60 mg capsuleIndication s:Medication refill Take 1 capsule (60 mg total) by mouth daily 30 capsule Active diclofenac sodium (VOLTAREN) 1 % gelIndications:Me dication refill Apply 2 g topically 3 (three) times a day 20 g 3 Active blood-glucose meter miscIndications:T o monitor for low blood sugar Please check blood sugar when feeling symptoms of hypoglycemia: Sweating, hunger, confusion, jitteriness, nausea with vomiting. Check blood sugar and if below 70 immediately consume food. 1 each Active blood glucose diagnostic (glucose blood) stripIndications: Hypoglycemia Please check blood sugar once a day when feeling symptoms of hypoglycemia: Sweating, hunger, confusion, jitteriness, nausea with vomiting. Check blood sugar and if below 70 immediately consume food. DX: E16.2 100 each 11 024 2024 Active lancets miscIndications:H ypoglycemia Please check blood sugar once a day when feeling symptoms of hypoglycemia: Sweating, hunger, confusion, jitteriness, nausea with vomiting. Check blood sugar and if below 70 immediately consume food. DX: E16.2 30 each 3 024 Active docusate sodium (COLACE) 100 mg capsuleIndication s:constipation Take 1 capsule (100 mg total) by mouth 2 (two) times a day 60 capsule 1 12/05/2 024 Active albuterol HFA (PROVENTIL HFA,VENTOLIN HFA,PROAIR HFA) 90 mcg/actuation inhaler Inhale 2 puffs every 6 (six) hours as needed for wheezing 1 each 11 024 Active empagliflozin (JARDIANCE) 25 mg tabletIndications :Nonischemic cardiomyopathy (HCC) Take 1 tablet (25 mg total) by mouth daily 90 tablet 3 025 Active LORazepam (ATIVAN) 1 mg tablet Take 1 tablet (1 mg total) by mouth 3 (three) times a day as needed 024 Active cetirizine 10 mg capsule Take 10 mg by mouth 2 (two) times a day 60 capsule 2 025 Active cyanocobalamin (Vitamin B-12) 1,000 mcg tabletIndications :Medication refill Take 1 tablet (1,000 mcg total) by mouth daily 30 tablet 2 025 Active emtricitabine-ten ofovir disoproxil fumerate (TRUVADA) 200-300 mg per tabletIndications :Medication refill Take 1 tablet by mouth daily 30 tablet 2 025 Active tamsulosin (FLOMAX) 0.4 mg extended release capsuleIndication s:Frequent UTI Take 1 capsule (0.4 mg total) by mouth daily 90 capsule 3 025 2025 Active cyclobenzaprine (FLEXERIL) 10 mg tabletIndications :Medication refill Take 1 tablet (10 mg total) by mouth 3 (three) times a day 90 tablet 2 025 Active furosemide (LASIX) 40 mg tabletIndications :Nonischemic cardiomyopathy (HCC) Take 1 tablet (40 mg total) by mouth 2 (two) times a day 60 tablet 2 025 Active carvediloL (COREG) 25 mg tabletIndications :Nonischemic cardiomyopathy (HCC) Take 1 tablet (25 mg total) by mouth 2 (two) times a day with meals 180 tablet 3 025 Active spironolactone (ALDACTONE) 25 mg tabletIndications :Nonischemic cardiomyopathy (HCC) Take 1 tablet (25 mg total) by mouth daily 90 tablet 3 025 Active ergocalciferol (VITAMIN D) 50,000 unit capsuleIndication s:Vitamin D Deficiency Take 1 capsule (50,000 Units total) by mouth once a week 12 capsule 025 2024 Active potassium chloride ER 20 mEq CR tabletIndications :Chronic systolic congestive heart failure (HCC) Take 1 tablet (20 mEq total) by mouth daily 90 tablet 3 025 Active lurasidone (LATUDA) 60 mg tablet Take 1 tablet (60 mg total) by mouth Active tirzepatide, weight loss, (Zepbound) 2.5 mg/0.5 mL pen injectorIndicatio ns:Class 3 severe obesity with serious comorbidity and body mass index (BMI) of 50.0 to 59.9 in adult Inject 0.5 mL (2.5 mg total) under the skin every 7 days 2 mL Active lurasidone (LATUDA) 40 mg tablet Take 1 tablet (40 mg total) by mouth daily 30 tablet 024 2024 Discontinued Active Problems Problem Noted Date Diagnosed Date Encounter for weight management 01/19/2025 Metabolic syndrome 01/19/2025 Hx of Retinal detachment with recent vision saini ges 11/12/2024 Hematochezia 08/22/2024 Acute recurrent pansinusitis 08/22/2024 Bleeding grade I hemorrhoids 06/06/2024 Assessment & Plan (06/06/2024 1:33 PM WEBSPHERE PROCESS SERVER DEVELOPER): We will attempt using hydrocortisone suppositories for the bleeding. He does have scheduled colonoscopy in a few months, this could possibly be addressed at that time. Encounter for screening colonoscopy 05/23/2024 Class 3 severe obesity with serious comorbidity and body mass index (BMI) of 50.0 to 59.9 in adult 05/21/2024 Assessment & Plan (07/24/2024 2:15 PM WEBSPHERE PROCESS SERVER DEVELOPER): Body mass index is 52.66 kg/m . CLASSIFICATION Class 3 obesity (severe obesity): 40 or greater Wt Readings from Last 3 Encounters: 07/24/24 (!) 166.5 kg (367 lb) 06/04/24 (!) 175.1 kg (386 lb 1.6 oz) 05/21/24 (!) 171.5 kg (378 lb) - Labs: CBC, CMP, TSH, A1c all wnl Lipids elevated. - Etiology: Lifestyle and diet Plan - Encouraged pt to continue with lifestyle modification: Diet/exercise, food tracking apps, diary to reflect on relationship with food. - Have educated patient that Mediterranean diet is widely accepted as the most balanced diet for both weight loss and sustained weight loss. Handout given. - Education given on risk associated with elevated BMI - Discussed options to help with weight loss: medications, CBT counseling, nutrition counseling, bariatric surgery for those BMI >40. Pt reports he has been evaluated for bariatric surgery in the past and was told he is not a candidate due to his chronic CHF, nonischemic cardiomyopathy, hypertension, morbid obesity, depression. - BMI Follow-up includes: nutrition counseling, exercise counseling, and education provided. - Start Zep bound and titrate up as tolerated- may need PA. No history of thyroid cancer, family history of multiple endocrine neoplasia, no history of pancreatitis, gallstones, does not drink alcohol. - Will send to [facility] weight loss clinic Assessment & Plan (05/21/2024 8:18 PM WEBSPHERE PROCESS SERVER DEVELOPER): Body mass index is 54.24 kg/m . Have advised lifestyle modification and encouraged weight loss. Weight loss goal before next appointment 10 lb At that appointment will discuss options to help patient with weight loss. Not a candidate for weight loss surgery as he has chronic CHF, nonischemic cardiomyopathy, hypertension, morbid obesity. Plan Discuss weight at follow up appointment Prediabetes 05/21/2024 Assessment & Plan (05/21/2024 7:43 PM WEBSPHERE PROCESS SERVER DEVELOPER): Patient with history of prediabetes. Patient would BMI of 54.2, hypertension, hyperlipidemia. Patient does report history of elevated blood sugars in which he does check sugars daily. Patient additionally has history of hypoglycemia for which he is required to have a glucometer. Plan A1c today Send for glucometer with supplies Lumbar back pain with sciatica 05/21/2024 Assessment & Plan (05/21/2024 8:48 PM WEBSPHERE PROCESS SERVER DEVELOPER): No red flag symptoms Associated sciatica Patient reports trying to do exercises learned in physical therapy. Denied repeat referral to physical therapy for balance and strength training. Patient also has associated falls with weakness which he reports is secondary to lower back pain and sciatica. Meds: Duloxetine, Vicodin, Tylenol, Flexeril Plan - Continued on Flexeril 10 mg t.i.d., duloxetine 60 mg daily, patient also taking hydrocodone 10-300 mg tablets Q 8 hours p.r.n - Will send prescription for p.r.n. Narcan due to high dose of Vicodin in case of accidental overdose or signs of opiate toxicity. - Will send to pain management for continued management. Patient has expressed desire to taper off his opiate medication. Plan - Have offered PT balance and strength training, patient declined saying he has been to physical therapy in the past and did not find it helpful. - Red flag symptoms discussed Frequent falls 05/21/2024 Assessment & Plan (05/21/2024 8:15 PM WEBSPHERE PROCESS SERVER DEVELOPER): Patient with frequent falls associated with lower back pain. Also on chronic opiate use with benzodiazepines. Patient okay with being sent to pain management to re-evaluate pain regimen. Additionally patient reports that he has been to physical therapy in the past and did not find it as helpful. He currently is declining a physical therapy referral. Plan - Will continue to offer physical therapy balance and strength training - Patient on aspirin daily Primary hypertension 05/21/2024 Assessment & Plan (05/21/2024 7:34 PM WEBSPHERE PROCESS SERVER DEVELOPER): Controlled Patient compliant with medication Medications; carvedilol 25 mg b.i.d., furosemide 40 mg q.day, Entresto 97-103 b.i.d., spironolactone 25 mg daily, additionally patient on Flomax which can lower blood pressure. Comorbid CHF Following with Cardiology who is managing Plan Ambulatory monitoring and bring log with him to next visit No medication changes today Continue to follow with Cardiology Hypomagnesemia 05/21/2024 Assessment & Plan (05/21/2024 8:40 PM WEBSPHERE PROCESS SERVER DEVELOPER): Cardiology monitoring with labs q.3 months Patient taking daily magnesium supplement 400 mg b.i.d. Hypokalemia 05/21/2024 Assessment & Plan (05/21/2024 8:40 PM WEBSPHERE PROCESS SERVER DEVELOPER): Cardiology monitoring with labs q.3 months Patient on potassium supplement 20 mEq daily Patient also on spironolactone Chronic systolic congestive heart failure 2023 Overview (05/21/2024): Cardiac history including: NICM, CHF systolic, LBBB, s/p removal PM/defibrillation 2nd to Infected lead UTI and removed SANDOVAL: EF 19% 04/25: TTE Now 35-40% Follows with [facility]: Dr. Tobin: last apt last week. No changes med Apts q3 month MEDS: Aspirin 81 mg, carvedilol 25 mg b.i.d, Jardiance 25 mg, Entresto 97-103 mg b.i.d., spironolactone 25 mg. Diuretic: Lasix 40 mg Not on statin Assessment & Plan (05/21/2024 8:03 PM WEBSPHERE PROCESS SERVER DEVELOPER): Cardiac history including: NICM, CHF systolic, LBBB, s/p removal PM/defibrillation 2nd to Infected lead UTI and removed EF improving on last SANDOVAL no 35-40% from 19% Follows with Cardio [facility]: Dr. Tobin: No changes at last apt. Plan - Continue current treatment per cardio - Not on statin will discuss with pt why. Last Lipid man looked good. Is on ASA daily - Labs: CBC, CMP, Mag, Lipid today - Due to pts elevated BMI, history of cardiac disease patient is a candidate for GLP 1 inhibitors. We will make a special appointment to discuss obesity and we can do to help him lose weight. LBBB (left bundle branch block) 05/21/2024 Assessment & Plan (05/21/2024 8:13 PM WEBSPHERE PROCESS SERVER DEVELOPER): Following with Cardiology who is managing see assessment and plan for chronic CHF Hx of reomval of internal ca rdiac defibrillator (ICD) and pacemaker 05/21/2024 Assessment & Plan (05/21/2024 8:05 PM WEBSPHERE PROCESS SERVER DEVELOPER): Patient with dual-chamber cardiac defibrillator and pacemaker. Patient reports frequent UTIs and was thought to develop urosepsis which traveled along the catheter line and into his heart. The catheter was removed successfully. Was not replaced. Plan Following with Cardiology who is managing extensive cardiac history Educated on red flag ED precautions patient expressed her understanding Frequent UTI 05/21/2024 Assessment & Plan (05/21/2024 8:06 PM WEBSPHERE PROCESS SERVER DEVELOPER): Frequent UTIs. History of urosepsis with infected dual-chamber cardiac pacemaker/defibrillator requiring removal. Plan - Screen with UA as needed - Flomax 0.4 mg Mixed hyperlipidemia 05/21/2024 Assessment & Plan (05/21/2024 8:09 PM WEBSPHERE PROCESS SERVER DEVELOPER): Controlled on recent labs Not on statin but is taking aspirin 81 mg daily Patient with extensive cardiac history Following with Cardiology who is managing Anal fissure 05/21/2024 Overview (05/21/2024): Pt with history of anal fissure. He reports he has had it repaired surgically multiple times. He is complaining of pain with blood during bowel movements. Patient reports he is a homosexual male who receives anal sex. He would like to be seen by a surgeon to have repair. Plan - Continue bajp-rln-[id number] supportive care - Will send for surgical consult Assessment & Plan (06/06/2024 1:37 PM WEBSPHERE PROCESS SERVER DEVELOPER): Recurrent issue- he has had surgical repair in the past. Would like to attempt conservative measures at this time, will send in for diltiazem cream. We will have follow up in 4-6 weeks with the surgeon to check on his symptoms. His cardiac and respiratory history put him at high risk for complications from surgery, as well as failure as he has already had surgical treatment in the past. He does continue to receive anal sex as well. Will send in for colace as well for his constipation DYLON (obstructive sleep apnea) 05/21/2024 Assessment & Plan (05/21/2024 7:46 PM WEBSPHERE PROCESS SERVER DEVELOPER): Pt with DYLON previously on BiPap. STOPBANG: positive ESS score: 9 Morbid obesity, Chronic CHF, HTN Plan - Will send to sleep medicine for evaluation of BiPap and monitoring for compliance - Advised nightly usage. Pt reports if he had a machine he would use it nightly. Non-ischemic cardiomyopathy 05/21/2024 Overview (05/21/2024): Cardiac history including: NICM, CHF systolic, LBBB, s/p removal PM/defibrillation 2nd to Infected lead UTI and removed SANDOVAL: EF 19% 04/25: TTE Now 35-40% Follows with [facility]: Dr. Tobin: last apt last week. No changes med Apts q3 month MEDS: Aspirin 81 mg, carvedilol 25 mg b.i.d, Jardiance 25 mg, Entresto 97-103 mg b.i.d., spironolactone 25 mg. Diuretic: Lasix 40 mg Not on statin Assessment & Plan (05/21/2024 8:34 PM WEBSPHERE PROCESS SERVER DEVELOPER): See plan for Chronic sys CHF At high risk for exposure to HIV on Prep 024 Assessment & Plan (05/21/2024 8:28 PM WEBSPHERE PROCESS SERVER DEVELOPER): MSM relationship Patient reports sexually active with 1 partner. (HIV status unknown/on prep unknown) Sex behaviors reported: Gives and receives anal sex, oral sex No concerns today for STI but gets regular screening: due today Pt on Truvada for prep: compliant Plan - Will continue Truvada prep for HIV prevention - Q3 months screen for HIV, hep C, hep B, RPR, GC, CT, cr, lipids. - Continue to screen for compliance. - I educated the need for condoms with new partners with unknown status/not on prep. Family history of colon cancer relative <40 year s old 05/21/2024 Assessment & Plan (05/21/2024 8:16 PM WEBSPHERE PROCESS SERVER DEVELOPER): Patient with family history of primary relative with colon cancer at the age of 30. Patient was supposed to undergo colon cancer screening at a young age in in his late 20s had a colonoscopy that was normal. Was told to continue with colonoscopies every 10 years. He has not had follow-up. He is due for a colonoscopy today. Plan Will send to GI for screening colonoscopy Chronic prescription opiate use 05/21/2024 Assessment & Plan (05/21/2024 8:46 PM WEBSPHERE PROCESS SERVER DEVELOPER): Patient was sciatica in the setting of degenerative disc disease of lumbar spine. Per patient has herniated disc in lumbar spine. Patient with multiple falls secondary to legs giving out. No red flag symptoms reported Plan - Have offered PT balance and strength training, patient declined saying he has been to physical therapy in the past and did not find it helpful. - Continued on Flexeril 10 mg t.i.d., duloxetine 60 mg daily, patient also taking hydrocodone 10-300 mg tablets Q 8 hours p.r.n - Have informed patient that we will need to go to pain management to continue prescription for controlled narcotics. Patient reports if he could wean off the medication he would do this. We will plan for follow-up to discuss scheduled tapering. Resolved Problems Problem Noted Date Diagnosed Date Resolved Date Sciatica associated with dis order of lumbar spine 05/21/2024 05/21/2024 Assessment & Plan (05/21/2024 7:32 PM WEBSPHERE PROCESS SERVER DEVELOPER): Patient was sciatica in the setting of degenerative disc disease of lumbar spine. Per patient has herniated disc in lumbar spine. Patient with multiple falls secondary to legs giving out. No red flag symptoms reported Plan - Have offered PT balance and strength training, patient declined saying he has been to physical therapy in the past and did not find it helpful. - Continued on Flexeril 10 mg t.i.d., duloxetine 60 mg daily, patient also taking hydrocodone 10-300 mg tablets Q 8 hours p.r.n - Have informed patient that we will need to go to pain management to continue prescription for controlled narcotics. Patient reports if he could wean off the medication he would do this. We will plan for follow-up to discuss scheduled tapering. Chest pain, unspecified type 04/15/2024 08/22/2024 Assessment & Plan (05/21/2024 8:18 PM WEBSPHERE PROCESS SERVER DEVELOPER): Stable, patient denying any cardiac symptoms at this time Compliant with all his medications Following with Cardiology who is managing q.3 months Labs today Immunizations Immunization Administration Dates Next Due Influenza, Trivalent, Preser vative Free, Intramuscular 04/09/2024 Influenza, Unspecified 04/24/2023(Deferred: Viv ent Refused) Tdap 07/28/2024 Social History Tobacco Use Types Packs/Day Years Used Date Smoking Tobacco: Never Smokeless Tobacco: Never [facility] Utilities Answer Date Recorded In the past 12 months has th e electric, gas, oil, or water company threatened to shut off services in your home? No 04/22/2024 Social Connection and Isolat ion Panel [NHANES] Answer Date Recorded In a typical week, how many times do you talk on the phone with family, friends, or neighbors? More than three times a week 04/22/2024 How often do you get togethe r with friends or relatives? More than three times a week 04/22/2024 How often do you attend chur ch or adventism services? More than 4 times per year 04/22/2024 Do you belong to any clubs o r organizations such as zoroastrianism groups, unions, fraternal or athletic groups, or school groups? No 04/22/2024 How often do you attend meet ings of the clubs or organizations you belong to? Never 04/22/2024 Are you , , di vorced, , never , or living with a partner? Never 04/22/2024 AUDIT-C Answer Date Recorded Q1: How often do you have a drink containing alc ohol? Monthly or less 01/24/2025 Q2: How many drinks containi ng alcohol do you have on a typical day when you are drinking? 3 or 4 01/24/2025 Q3: How often do you have si x or more drinks on one occasion? Less than monthly 01/24/2025 Overall Financial Resource Strain (CARDIA) Answe r Date Recorded How hard is it for you to pa y for the very basics like food, housing, medical care, and heating? Somewhat hard 04/22/2024 PHQ-2 Answer Date Recorded PHQ-2 Total Score (If total score is 3 or more points, staff should administer the PHQ-9) 0 11/12/2024 Hunger Vital Sign Answer Date Recorded Within the past 12 months, y ou worried that your food would run out before you got the money to buy more. Never true 04/22/20 24 Within the past 12 months, t he food you bought just didn't last and you didn't have money to get more. Never true 04/22/2024 PRAPARE - Transportation Answer Date Re corded In the past 12 months, has l ack of transportation kept you from medical appointments or from getting medications? No 04/03 In the past 12 months, has l ack of transportation kept you from meetings, work, or from getting things needed for daily living? No 04/22/2024 PHQ-9 Answer Date Recorded PHQ-9 Total Score 18 07/24/2024 Housing Stability Vital Sign Answer Deejay e Recorded In the last 12 months, was t here a time when you were not able to pay the mortgage or rent on time? No 04/22/20 24 In the past 12 months, how m any times have you moved where you were living? 10 04/22/2024 At any time in the past 12 m [facility], were you homeless or living in a care home (including now)? Patient declined 04/22/2024 Personal Safety Answer Date Recorded Have you ever been in or are you currently in a harmful physical or emotional relationship or is someone making you feel afraid or unsafe? Denies 11/07/2024 Sex and Gender Information Value Date Recorded Sex Assigned at Not on file Legal Sex Male 11:16 AM CDT Gender Identity Male 04/15/2024 7:11 PM CDT Sexual Orientation Rogers 04/15/2024 7: 11 PM CDT Last Filed Vital Signs Vital Sign Reading Time Taken Comments Blood Pressure 118/72 01/24/2025 2:55 PM CDT Pulse 93 01/24/2025 2:55 PM CDT Temperature 36.5 C (97.7 F) 01/24/2025 2:55 PM CDT Respiratory Rate 18 11/07/2024 10:4 8 AM CDT Oxygen Saturation 95% 01/24/2025 2:55 PM CDT Inhaled Oxygen Concentration - - Weight 164.6 kg (362 lb 12.8 oz) 01/24/2025 2:55 PM CDT Height 174.5 cm (5' 8.72) 01/24/2025 2:55 PM CD T Body Mass Index 54.01 01/24/2025 2:55 PM CDT Plan of Treatment Not on file Procedures Procedure Name Priority Date/Time Associated Diagnosis Comments US RUQ Schedule Routine, Read Routine (OP Routine) 01/20/2025 10:14 AM CDT Class 3 severe obesity with serious comorbidity and body mass index (BMI) of 50.0 to 59.9 in adult, unspecified obesity type Metabolic and nutritional disorder EGFR Routine 11/12/2024 11:23 AM CDT Annual physical exam DRUGS OF ABUSE SCREEN, URINE WITH REFLEX CONFIRMATION Routine 11/12/2024 11:23 AM CDT At high risk for exposure to HIV on Prep MAGNESIUM Routine 11/12/2024 11:23 AM CDT Hypomagnesemia VITAMIN B12 Routine 11/12/2024 11:23 AM CDT B12 deficiency VITAMIN D 25 HYDROXY Routine 11/12/2024 11:23 AM CDT Vitamin D deficiency CBC WITHOUT DIFFERENTIAL Routine 11/12/2024 11:23 AM CDT B12 deficiency COMPREHENSIVE METABOLIC PANEL Routine 11/12/2024 11:23 AM CDT Annual physical exam LIPID PANEL Routine 11/12/2024 11:23 AM CDT Mixed hyperlipidemia THYROID FUNCTION CASCADE Routine 11/12/2024 11:23 AM CDT Screening for thyroid disorder HEMOGLOBIN A1C Routine 11/12/2024 11:23 AM CDT Prediabetes URINALYSIS AND REFLEX TO MICROSCOPIC AND CULTURE Routine 11/12/2024 11:23 AM CDT At high risk for exposure to HIV on Prep N. GONORRHOEAE/C. TRACHOMATIS AMPLIFICATION Routine 11/12/2024 11:23 AM CDT At high risk for exposure to HIV on Prep RPR Routine 11/12/2024 11:23 AM CDT At high risk for exposure to HIV on Prep HEPATITIS B SURFACE ANTIGEN Routine 11/12/2024 11:23 AM CDT At high risk for exposure to HIV on Prep HEPATITIS B SURFACE ANTIBODY (IMMUNE STATUS) Routine 11/12/2024 11:23 AM CDT At high risk for exposure to HIV on Prep HEPATITIS C ANTIBODY Routine 11/12/2024 11:23 AM CDT At high risk for exposure to HIV on Prep HSV 2 ANTIBODY, IGG Routine 11/12/2024 11:23 AM CDT At high risk for exposure to HIV on Prep HSV 1 ANTIBODY, IGG Routine 11/12/2024 11:23 AM CDT At high risk for exposure to HIV on Prep HIV 1/2 ANTIBODY PLUS P24 ANTIGEN Routine 11/12/2024 11:23 AM CDT At high risk for exposure to HIV on Prep COLONOSCOPY 11/07/2024 9:41 AM CDT Encounter for screening colonoscopy Family history of colon cancer COLONOSCOPY 11/07/2024 8:09 AM CDT from Last 3 Months Results * US RUQ (01/20/2025 10:14 AM CDT) Anatomical Region Laterality Modality Abdomen N/A Ultrasound 01/20/2025 1:25 PM CDT Impressions 01/20/2025 4:41 PM CDT 1. Hepatic steatosis. 2. Cholelithiasis. Dictated by: Henrique Ordoñez M.D. The radiology attending physician has personally reviewed this study, and had reviewed and/or edited this written report and agrees with it. Electronically signed by: Reece Anaya M.D., Ph.D Narrative 01/20/2025 4:41 PM CDT EXAMINATION: LIMITED ABDOMINAL SONOGRAM HISTORY: 39-year-old male with severe obesity and elevated triglycerides COMPARISON: None FINDINGS: Liver: The echotexture is normal. The echogenicity is increased. There is no surface nodularity. No focal solid lesions are visualized. Gallbladder: The gallbladder is normal in size. There is a stone within the gallbladder. There is no gallbladder wall thickening. Bile Duct: There is no intrahepatic bile duct dilatation. The diameter of the common bile duct is 4 mm in the mid segment. The proximal and distal segments aren't well visualized. Right Kidney: There is no hydronephrosis in the visualized portions of the right kidney. Pancreas: The visualized portions of the pancreas demonstrate no focal lesions. Inferior vena cava: The proximal IVC is not well visualized.. Other Findings: There is no ascites. Procedure Note Reece Anaya MD PhD - 01/20/2025 EXAMINATION: LIMITED ABDOMINAL SONOGRAM HISTORY: 39-year-old male with severe obesity and elevated triglycerides COMPARISON: None FINDINGS: Liver: The echotexture is normal. The echogenicity is increased. There is no surface nodularity. No focal solid lesions are visualized. Gallbladder: The gallbladder is normal in size. There is a stone within the gallbladder. There is no gallbladder wall thickening. Bile Duct: There is no intrahepatic bile duct dilatation. The diameter of the common bile duct is 4 mm in the mid segment. The proximal and distal segments aren't well visualized. Right Kidney: There is no hydronephrosis in the visualized portions of the right kidney. Pancreas: The visualized portions of the pancreas demonstrate no focal lesions. Inferior vena cava: The proximal IVC is not well visualized.. Other Findings: There is no ascites. IMPRESSION: 1. Hepatic steatosis. 2. Cholelithiasis. Dictated by: Henrique Ordoñez M.D. The radiology attending physician has personally reviewed this study, and had reviewed and/or edited this written report and agrees with it. Electronically signed by: Reece Anaya M.D., Ph.D Jessie ALLEN Michael US PROCEDURES Fin al Result * N. gonorrhoeae/C. trachomatis Amplification Urine (11/12/2024 11:23 AM CDT) C. trachomatis Not Detected [facility] Comment:Testing performed by : [facility], [address] [facility] [place]., [address] N. gonorrhoeae Not Detected JESSICA HOWE Comment: Interpretive Data This assay detects Chlamydia trachomatis and Neisseria gonorrhoeae by nucleic acid amplification testing (NAAT). This assay has been cleared by the [place] Food and Drug administration. The performance characteristics of this test have been verified by the [facility] Molecular Infectious Disease laboratory. The performance characteristics of this test have not been evaluated in individuals less than 14 years of age. Current Interpretive Data was last revised on 2023. Testing performed by: [facility], [address] [facility], [place]., [address] Urine (None) 11/12/2024 11:2 3 AM CDT 11/13/2024 10:14 AM CDT us Ronald Capps MD LAB MICROBIOLOGY - [facility] ORDERABLES Final Result JESSICA HOWE [id number] [place] [address] Department [place] [address] [facility] * (ABNORMAL) Drugs of Abuse Screen, Urine with Reflex Confirmation (11/12/2024 11:23 AM CDT) Pathologist [facility] Amphetamine, ur Not Detected CutOff 500ng/mL Comment: Interpretive Data - Amphetamines: Samples containing greater than 500 ng/mL d-methamphetamine or other cross-reacting amphetamine compounds are reported as positive. Amphetamine immunoassays are subject to significant false positive rates due to cross-reactivity of non-amphetamine drugs. Confirmatory testing required for definitive results. Current Interpretive Data was last reviewed 2023. Testing performed by: [facility], [address] [place] [address]., [address] Barbiturates, ur Not Detected CutOff 200ng/mL JESSICA HOWE Comment: Interpretive Data - Barbiturates: Samples containing greater than 200 ng/mL secobarbital or other cross-reacting barbiturate compounds are reported as positive. False positive and false negative results are possible. Confirmatory testing required for definitive results. Current Interpretive Data was last reviewed 2023. Testing performed by: [facility], [address] [place] [address]., [address] Benzodiazepines, ur Screen Positive, presumptive (A) CutOff 100ng/mL JESSICA HOWE Comment: Interpretive Data - Benzodiazepines: Samples containing greater than 100 ng/mL nordiazepam or other cross-reacting compounds are reported as positive. False positive and false negative results are possible. Confirmatory testing required for definitive results. Current Interpretive Data was last reviewed 2023. Testing performed by: [facility], [address] [place] [address]., [address] Cannabinoids, ur Not Detected CutOff 50 ng/mL CERNER Comment: Interpretive Data - Cannabinoids: Samples containing greater than 50 ng/mL delta-9 THC -COOH or other cross- reacting compounds are reported as positive. False positive and false negative results are possible. Confirmatory testing required for definitive results. Current Interpretive Data was last reviewed 2023. Testing performed by: [facility], [address] [place] [address]., [address] Cocaine, ur Not Detected CutOff 150ng/mL CERNER Comment: Interpretive Data - Cocaine: Samples containing greater than 150 ng/mL benzoylecgonine or other cross- reacting compounds are reported as positive. False positive and false negative results are possible. Confirmatory testing required for definitive results. Current Interpretive Data was last reviewed 2023. Testing performed by: [facility], [address] [place] [address]., [address] Fentanyl, Ur Not Detected CutOff 5 ng/mL CERNER Comment: Interpretive Data - Fentanyl: Samples containing greater than 5 ng/mL norfentanyl, fentanyl, or other cross-reacting fentanyl compounds are reported as positive. False positive and false negative results are possible. Confirmatory testing required for definitive results. Current Interpretive Data was last reviewed 2023. Testing performed by: [address] [address] Methadone, ur Not Detected CutOff 300ng/mL CERNER Comment: Interpretive Data - Methadone: Samples containing greater than 300 ng/mL d,l-methadone or other cross-reacting compounds are reported as positive. False positive and false negative results are possible. Confirmatory testing required for definitive results. Current Interpretive Data was last reviewed 2023. Testing performed by: [address] [address] Opiates, ur Not Detected CutOff 300ng/mL CERNER Comment: Interpretive Data - Opiates: Samples containing greater than 300 ng/mL morphine or other cross-reacting compounds are reported as positive. False positive and false negative results are possible. Confirmatory testing required for definitive results. Current Interpretive Data was last reviewed 2023. Testing performed by: [address] [address] Oxycodone, ur Not Detected CutOff 100ng/mL JESSICA Comment: Interpretive Data - Oxycodone: Samples containing greater than 100 ng/mL oxycodone or other cross-reacting compounds are reported as positive. False positive and false negative results are possible. Confirmatory testing required for definitive results. Current Interpretive Data was last reviewed 2023. Testing performed by: [facility], [address] [place] [address]., [address] Phencyclidine, ur Not Detected CutOff 25 ng/mL JESSICA Comment: Interpretive Data - Phencyclidine: Samples containing greater than 25 ng/mL phencyclidine or other cross-reacting compounds are reported as positive. False positive and false negative results are possible. Confirmatory testing required for definitive results. Current Interpretive Data was last reviewed 2023. Testing performed by: [address] [address] Urine Creatinine 99 mg/dL JESSICA Comment: Interpretive Data Urine Creatinine: < 10 mg/dL is extremely dilute = or > 10 but < 20 mg/dL is dilute = or > 20 mg/dL is normal Current Interpretive Data was last revised on 2017. Testing performed by: [address] [address] Urine 11/12/2024 11:2 3 AM CDT 11/12/2024 6:55 PM CDT Narrative [facility] - 11/12/2024 8:16 PM CDT Drug of Abuse screening is performed by immunoassay for medical purposes only. This is not to be used for Pain Management purposes. If Detected, confirmation testing will be performed for Amphetamines, Cocaine, Fentanyl, Methadone, Opiates, Oxycodone or Phencyclidine. Ronald Capps MD LAB URINE ORDERABLES Fin al Result [address] Department [place] [address] * eGFR (11/12/2024 11:23 AM CDT) eGFR >90 >=60 mL/min/1. 73 m2 Comment: Interpretive Data Reference Interval Normal >/= 90 mL/min/1.73m2 Mildly decreased* 60 - 89 mL/min/1.73m2 Mildly to moderately decreased 45 - 59 mL/min/1.73m2 Moderately to severely decreased 30 - 44 mL/min/1.73m2 Severely decreased 15 - 29 mL/min/1.73m2 Kidney Failure < 15 mL/min/1.73m2 *Relative to young adult level Estimated glomerular filtration rate is determined by the 2020 CKD-EPI equation recommended by the National Kidney Foundation (A Unifying Approach to GFR Estimation: Recommendations of the NKF-ASK Task Force on Reassessing the Inclusion of Race in Diagnosing Kidney Disease, JASN 2020). The CKD-EPI equation should not be used for patients with unstable renal function and has not been validated in children and those over 70. Current interpretive data was last reviewed 2021. Testing performed by: [address] [address] Blood 11/12/2024 11:2 3 AM CDT 11/12/2024 7:02 PM CDT Ronald Capps MD LAB BLOOD ORDERABLES Fin al Result Performing Organization Address [facility] de Phone Number JACOBLAURA [address] [address] Department of Laboratories [place] [phone] * Thyroid Function Denbo (11/12/2024 11:23 AM CDT) TSH 1.18 0.30 - 4.20 mcIUnit/mL Comment:Testing performed by : [address] [address] Blood 11/12/2024 11:2 3 AM CDT 11/12/2024 6:55 PM CDT Ronald Capps MD LAB BLOOD ORDERABLES Fin al Result Performing Organization Address City/[facility]/ZIP Co de Phone Number JESSICA HOWE [id number] [address] Department [place] [address] * HIV 1/2 Antibody plus p24 Antigen Blood (11/12/2024 11:23 AM CDT) HIV 1/2 ab + p24 ag Nonreactive Nonreactive Comment: Nonreactive for HIV-1 antigen and HIV-1/HIV-2 antibodies. No laboratory evidence of HIV infection. If acute HIV infection is suspected, consider testing for HIV-1 RNA. Testing performed by: [address] [address] Blood 11/12/2024 11:2 3 AM CDT 11/12/2024 6:55 PM CDT us Ronald Capps MD LAB MICROBIOLOGY - GENER AL ORDERABLES Final Result JESSCIA [address] [facility] [place] [address] * (ABNORMAL) Urinalysis reflex to microscopic and culture Urine, clean voided (11/12/2024 11:23 AM CDT) Color, ur Yellow Yellow Comment:Testing performed by : [address] [address] Clarity, ur Clear Clear [facility] Comment:Testing performed by : [address] [address] Specific gravity, ur 1.024 1.003 - 1.030 [facility] Comment:Testing performed by : [address] [address] pH, urine 6.0 [facility] Comment: Interpretive Data U rine pH is affected by diet, medications, systemic acid-base disturbances, and renal tubular function. pH may affect urinary stone formation. For example, urine pH below 6.0 may help reduce the tendency for calcium phosphate stones and pH greater than 6.0 may reduce the tendency for uric acid stone formation. Source: [facility] [employer] Current Interpretive Data was last revised on 2017 Testing performed by: [address] [address] Protein, ur ql Negative Negative [facility] Comment:Testing performed by : [facility], [address] [place] [address]., [address] Glucose, ur ql 4+(A) Negative [facility] Comment:Testing performed by : [address] [address] Ketones, ur Negative Negative [facility] Comment:Testing performed by : [address] [address] Bilirubin, ur Negative Negative [facility] Comment:Testing performed by : [facility], [address] [place] [address]., [address] Blood, ur Negative Negative [facility] Comment:Testing performed by : [address] [address] Urobilinogen, ur <2.0 <2.0 mg/dL [facility] Comment:Testing performed by : [address] [address] Nitrite, ur Negative Negative [facility] Comment:Testing performed by : [address] [address] Leukocyte esterase, ur Negative Negative [facility] Comment:Testing performed by : [address] [address] UA reflex comment Reflex conditions for microscopic UA and culture not met. [facility] Comment:Testing performed by : [address] [address] Urine, clean voided 11/12/2024 11:23 AM CDT 11/12/2024 6:55 PM CDT Ronald Capps MD LAB MICROBIOLOGY - GENER AL ORDERABLES Final Result [address] Department [place] [address] * Hepatitis C antibody Blood (11/12/2024 11:23 AM CDT) Hep C Ab Nonreactive Nonreactive Comment: Interpretive Data Nonreactive: Antibodies to HCV not detected. Does NOT exclude the possibility of recent exposure to HCV. Equivocal: Equivocal for HCV antibodies. Supplemental molecular testing will be automatically performed to determine infection status in accordance with current CDC screening recommendations. Reactive: Positive for HCV antibodies. This may represent current or past HCV infection. Supplemental molecular testing will be automatically performed to determine current infection status in accordance with current CDC screening recommendations. Interpretive data was last revised on 2019. Testing performed by: [facility], [address] [place] [address]., [address] Blood 11/12/2024 11:2 3 AM CDT 11/12/2024 6:55 PM CDT Ronald Capps MD LAB MICROBIOLOGY - GENER AL ORDERABLES Final Result Performing Organization Address City/[facility]/ZIP Co de Phone Number JESSICA [phone] [address] [employer] [facility] [address] [place] [address] * (ABNORMAL) Vitamin D 25 hydroxy (11/12/2024 11:23 AM CDT) Vitamin D 25-OH 29(L) 30 - 80 ng/mL Comment:Testing performed by : [facility], [address] [place] [address]., [address] Blood 11/12/2024 11:2 3 AM CDT 11/12/2024 6:55 PM CDT Ronald Capps MD LAB BLOOD ORDERABLES Fin al Result Performing Organization Address [facility] Co de Phone Number JESSICA [id number] [facility] Department [employer] [address] [place] [address] * HSV 2 IgG Antibody Blood (11/12/2024 11:23 AM CDT) HSV 2 IgG Nonreactive Nonreactive Comment: Interpretive Data 1. Nonreactive: No detectable IgG antibody to HSV-2. 2. Equivocal: Presence or absence of detectable antibodies to HSV-2 cannot be determined and the test should be repeated. 3. Reactive: Indicates presence of detectable IgG antibody to HSV-2. Current interpretive data was last revised on 2022. Testing performed by: [facility], [address] [place] [address] Blood 11/12/2024 11:2 3 AM CDT 11/13/2024 10:02 AM CDT Ronald Capps MD LAB MICROBIOLOGY - GENER AL ORDERABLES Final Result JESSICA HOWE [address] [address] [place] [employer] [place] [address] * (ABNORMAL) HSV 1 IgG Antibody Blood (11/12/2024 11:23 AM CDT) HSV 1 IgG Reactive( A) Nonreactive Comment: Interpretive Data 1. Nonreactive: No detectable IgG antibody to HSV-1. 2. Equivocal: Presence or absence of detectable antibodies to HSV-1 cannot be determined and the test should be repeated. 3. Reactive: Indicates presence of detectable IgG antibody to HSV-1. Current interpretive data was last revised on 2019. Testing performed by: [facility], [address] [place]., [address] Blood 11/12/2024 11:2 3 AM CDT 11/13/2024 10:02 AM CDT Ronald Capps MD LAB MICROBIOLOGY - GENER AL ORDERABLES Final Result Performing Organization Address [facility] Co de Phone Number JESSICA HOWE [address] [address] [facility] [place] [place] [address] * RPR Blood (11/12/2024 11:23 AM CDT) RPR Nonreactive Nonreactive Comment:Testing performed by : [facility], [address] [place] [address]., [address] Blood 11/12/2024 11:2 3 AM CDT 11/12/2024 6:55 PM CDT Ronald Capps MD LAB MICROBIOLOGY - GENER AL ORDERABLES Final Result JESSICA HOWE [address] [address] Department [place] [address] * Hepatitis B surface antibody (immune status) Blood (11/12/2024 11:23 AM CDT) Pathologist [facility] HBsAb (immune status) Nonreactive Comment: Interpretive Data Nonreactive: This result is consistent with a lack of immunity to Hepatitis B Virus when used in the setting of routine screening. Equivocal: The immune status of the individual should be further assessed, if appropriate, after consideration of clinical status, risk factors, and additional diagnostic information. Reactive: This result is consistent with immunity to Hepatitis B Virus when used in the setting of routine screening. Current interpretive data was last revised on 19. Testing performed by: [address] [address] Blood 11/12/2024 11:2 3 AM CDT 11/12/2024 6:55 PM CDT Ronald Cpaps MD LAB MICROBIOLOGY - GENER AL ORDERABLES Final Result Performing Organization Address City/[facility]/ZIP Co de Phone Number JESSICA [phone] [address] [place] [address] * Hepatitis B Surface Antigen Blood (11/12/2024 11:23 AM CDT) [facility] HepBsAg Nonreactive Nonreactive Comment:Testing performed by : [address] [address] Blood 11/12/2024 11:2 3 AM CDT 11/12/2024 6:55 PM CDT Ronald Capps MD LAB MICROBIOLOGY - GENER AL ORDERABLES Final Result [facility] [address] [address] [employer] [address] [place] [address] * (ABNORMAL) CBC without differential (11/12/2024 11:23 AM CDT) [facility] WBC 8.25 3.80 - 9.90 K/cumm Comment:Testing performed by : [address] [address] Hgb 15.3 13.0 - 17.5 g/dL [facility] Comment:Testing performed by : [address], [address] Hct 48.9 38.9 - 50.3 % [facility] Comment:Testing performed by : [address], [address] Plt 189 150 - 400 K/cumm [facility]ER CH Comment:Testing performed by : [address], [address] MPV 13.0(H) 9.1 - 12.3 fL [facility] CH Comment:Testing performed by : [address], [address] RBC 5.08 4.30 - 5.80 M/cumm C[facility]ER CH Comment:Testing performed by : [address], [address] MCV 96.3 81.3 - 96.4 fL [facility] CH Comment:Testing performed by : [address], [address] MCH 30.1 27.1 - 33.3 pg [facility] CH Comment:Testing performed by : [address], [address] MCHC 31.3(L) 32.3 - 35.7 g/dL [facility] CH Comment:Testing performed by : [address], [address] RDW CV 14.0 11.1 - 14.9 % [facility] CH Comment:Testing performed by : [address], [address] RDW SD 50.0(H) 35.7 - 48.1 fL CERNER CH Comment:Testing performed by : [address], [address] NRBC abs 0.00 0.00 - 0.01 K/cumm CERNER CH Comment:Testing performed by : [address], [address] Blood 11/12/2024 11:2 3 AM CDT 11/12/2024 6:55 PM CDT Ronald Capps MD LAB BLOOD ORDERABLES Fin al Result Performing Organization Address City/[facility] Co de Phone Number JESSICA [phone] [place] [address] * Magnesium (11/12/2024 11:23 AM CDT) Magnesium 2.0 1.4 - 2.5 mg/dL Comment:Testing performed by : [address] [address] Blood 11/12/2024 11:2 3 AM CDT 11/12/2024 6:55 PM CDT Ronald Capps MD LAB BLOOD ORDERABLES Fin al Result Performing Organization Address [facility] de Phone Number JESSICA [address] [place] [address] * Hemoglobin A1c (11/12/2024 11:23 AM CDT) Hgb A1C 5.3 4.0 - 5.6 % Comment:Testing performed by : [address] [address] Estimated Average Glucose 105 mg/dL JESSICA Comment: The ADA recommends reporting an estimated Average Glucose (eAG) with all Hemoglobin A1c results using the equation derived from a study of 507 normal and diabetic adults. Minority populations were underrepresented and children were not included. (Diabetes Care 31:1748-6196, 2008). The eAG is not equivalent to a fasting glucose. Testing performed by: [address] [address] Blood 11/12/2024 11:2 3 AM CDT 11/12/2024 6:55 PM CDT Ronald Capps MD LAB BLOOD ORDERABLES Fin al Result Performing Organization Address [facility] Co de Phone Number JESSICA [id number] [address] [facility] [place] [address] * Vitamin B12 (11/12/2024 11:23 AM CDT) Vitamin B12 666 230 - 1,250 pg/mL Comment:Testing performed by : [facility], [address] [place] [address]., [address] Blood 11/12/2024 11:2 3 AM CDT 11/12/2024 6:55 PM CDT us Ronald Capps MD LAB BLOOD ORDERABLES Fin al Result JESSICA [id number] [place] [address] Department [place] [address] * (ABNORMAL) Lipid panel (11/12/2024 11:23 AM CDT) Cholesterol 138 30 - 199 mg/dL Comment: Interpretive Data Ages < or = 19 years Acceptable: <170 mg/dL Borderline high: 170-199 mg/dL High: >or= 200 mg/dL Ages > or = 20 years Desirable: <200 mg/dL Borderline high: 200-239 mg/dL High: >or= 240 mg/dL Literature References: 1. Expert Panel on Integrated Guidelines for Cardiovascular Health and Risk Reduction in Children and Adolescents. Pediatrics 2011;128:S213 2. NCEP Expert Panel. Circulation 2004;110:227 Current Interpretive Data was last revised on 2018. Testing performed by: [facility], [address] [place] [address]., [address] Triglycerides 204(H) <=149 mg/dL JESSICA HOWE Comment: Interpretive Data Ages < or = 9 years Acceptable: <75 mg/dL Borderline high: 75-99 mg/dL High: >or= 100 mg/dL Ages 10 to 20 years Acceptable: <90 mg/dL Borderline high: 90-129 mg/dL High: >or= 130 mg/dL Ages > or = 20 years Desirable: <150 mg/dL Borderline high: 150-199 mg/dL High: 200-499 mg/dL Very high: >or= 499 mg/dL Literature References: 1. Expert Panel on Integrated Guidelines for Cardiovascular Health and Risk Reduction in Children and Adolescents. Pediatrics 2011;128:S213 2. NCEP Expert Panel. Circulation 2004;110:227 Current Interpretive Data was last revised on 2018. Testing performed by: [facility], [address] [place] [address]., [address] HDL 29(L) >=40 mg/dL JESSICA Comment: Interpretive Data Ages < or = 19 years Acceptable: >45 mg/dL Borderline low: 40-45 mg/dL Low: <40 mg/dL Ages > or = 20 years Desirable: >or= 60 mg/dL Low: <40 mg/dL Literature References: 1. Expert Panel on Integrated Guidelines for Cardiovascular Health and Risk Reduction in Children and Adolescents. Pediatrics 2011;128:S213 2. NCEP Expert Panel. Circulation 2004;110:227 Current Interpretive Data was last revised on 2018. Testing performed by: [address] [address] LDL, calculated 75 <=129 mg/dL JESSICA Comment: Interpretive Data Ages < or = 19 years Acceptable: <110 mg/dL Borderline high: 110-129 mg/dL High: >or= 130 mg/dL Ages > or = 20 years Optimal: <100 mg/dL Near optimal: 100-129 mg/dL Borderline high: 130-159 mg/dL High: >160 mg/dL Calculated using the Marek LDL-C estimating equation. This equation was implemented on 2024. Prior to this date LDL-C was estimated using the Friedewald equation. Literature References: 1. Expert Panel on Integrated Guidelines for Cardiovascular Health and Risk Reduction in Children and Adolescents. Pediatrics 2011;128:S213 2. NCEP Expert Panel. Circulation 2004;110:227 3. Marek Randle al. MIRANDA Cardiol. 2020 October 31;5(5):540-548. doi: [email or web address] Current Interpretive Data was last revised on 2024. Testing performed by: [facility], [address] [place] [address]., [address] Non-HDL Cholesterol 109 mg/dL JESSICA Comment: Interpretive Data Ages < or = 19 years Acceptable: <120 mg/dL Borderline high: 120-144 mg/dL High: >145 mg/dL Ages > or = 20 years When triglycerides are >200 mg/dL, Non-HDL cholesterol is a secondary target of therapy with treatment goals that are 30 mg/dL greater than the LDL cholesterol target. Literature References: 1. Expert Panel on Integrated Guidelines for Cardiovascular Health and Risk Reduction in Children and Adolescents. Pediatrics 2011;128:S213 2. NCEP Expert Panel. Circulation 2004;110:227 Current Interpretive Data was last revised on 2018. Testing performed by: [address] [address] Chol/HDL ratio 5 CERNER CH Comment:Testing performed by : [address] [address] Blood 11/12/2024 11:2 3 AM CDT 11/12/2024 6:55 PM CDT us Ronald Capps MD LAB BLOOD ORDERABLES Fin al Result [address] Department [place] [address] * Comprehensive metabolic panel (11/12/2024 11:23 AM CDT) Sodium 142 135 - 145 mmol/L Comment:Testing performed by : [address] [address] Potassium, pl 3.7 3.3 - 4.9 mmol/L CERNER CH Comment:Testing performed by : [address] [address] Chloride 105 97 - 110 mmol/L CERNER CH Comment:Testing performed by : [address] [address] CO2 29 22 - 32 mmol/L CERNER CH Comment:Testing performed by : [address] [address] Anion gap 8 2 - 15 mmol/L CERNER CH Comment:Testing performed by : [address], [address] BUN 11 6 - 25 mg/dL CERNER CH Comment:Testing performed by : [address], [address] Creatinine 0.90 0.80 - 1.30 mg/dL CERNER CH Comment:Testing performed by : [address] [address] Glucose 101 70 - 199 mg/dL CERNER CH Comment: Interpretive Data Fasting glucose >/= 126 mg/dl is diagnostic for diabetes. Fasting is defined as no caloric intake for at least 8 hours. Fasting glucose between 100 mg/dl to 125 mg/dl is diagnostic of prediabetes. In a patient with classic symptoms of hyperglycemia or hyperglycemic crisis, a random glucose >/= 200 mg/dl is diagnostic for diabetes. In the absence of unequivocal hyperglycemia, results should be confirmed by repeat testing. The classification and Diagnosis of Diabetes Diabetes Care 2021; 46: S19-S40. Current interpretive data was last revised 2022. Testing performed by: [address] [address] Calcium 9.4 8.5 - 10.3 mg/dL CERNER CH Comment:Testing performed by : [address], [address] Bilirubin, total 0.5 0.1 - 1.2 mg/dL CERNER CH Comment:Testing performed by : [address], [address] Protein, pl 6.7 6.5 - 8.5 g/dL CERNER CH Comment:Testing performed by : [address] [address] Albumin 3.9 3.5 - 5.0 g/dL CERNER CH Comment:Testing performed by : [address] [address] Alk phos 56 40 - 130 Units/L CERNER CH Comment:Testing performed by : [address], [address] ALT 14 7 - 55 Units/L CERNER CH Comment:Testing performed by : [address], [address] AST 25 10 - 50 Units/L CERNER CH Comment:Testing performed by : [address] [address] Blood 11/12/2024 11:2 3 AM CDT 11/12/2024 6:55 PM CDT Ronald Capps MD LAB BLOOD ORDERABLES Fin al Result JESSICA [address] [place] [address] * Colonoscopy (11/07/2024 8:09 AM CDT) Anatomical Region Laterality Modality Other Narrative Procedure Note Reece Swain, - 11/07/2024 8:09 AM CDT [facility] Patient Name: Jesus Alberto Olivas Procedure Date: 11/07/2024 8:09 AM Date of : 1985 Admit Type: Outpatient Age: 39 Gender: Male Attending MD: Reece Swain D.O. Room: [facility] ENDOSCOPY ROOM 3 Note Status: Finalized Patient Profile: Refer to note in patient chart for documentation of history and physical. Procedure: Colonoscopy Indications: Screening for colorectal malignant neoplasm,previous history of diverticulitis and maternal uncle with colon cancer at age 34. Last colonoscopy: 2016 Referring MD: Ronald Capps M.D. Providers: Reece Swain D.O. Impression: - The examined portion of the ileum was normal. - Diverticulosis. - No specimens collected. Recommendation: - Discharge patient to home. - Resume previous diet. - Continue present medications. - Repeat colonoscopy in 5 years for surveillance.Two day preparation. - Return to primary care physician PRN. Medicines: Propofol per Anesthesia Complications: No immediate complications. Estimated Blood Loss: Estimated blood loss was minimal. Procedure: Pre-Anesthesia Assessment: - As per anesthesia. The benefits, risks and alternatives of theprocedure and sedation were discussed and informed consentwas obtained. All questions were answered. Please referto the signed informed consent document in the medical record. The bowel preparation used was Miralax via split dose instruction. The bowel preparation usedwas bisacodyl tablets via split dose instruction. The scope was passed under direct vision. TheColonoscope [id number] was introduced through the anus and advanced to the 5 cm into the ileum. The colonoscopy was performed without difficulty. The patient tolerated the procedure well. The qualityof the bowel preparation was adequate to identifypolyps. If you areas were noted to have mucosal detailscared by debris. Anatomical landmarks werephotographed. Findings: The perianal and digital rectal examinations were normal. The terminal ileum appeared normal. Multiple diverticula were found in the left colon. No additional abnormalities were found on retroflexion. Electronically signed by Reece Swain M.D. Reece Swain D.O. 11/07/2024 10:22:05 AM Number of Addenda: 0 Note Initiated On: 11/07/2024 8:09 AM Procedure Code(s): --- Professional --- G0121, Colorectal cancer screening; colonoscopy on individual not meeting criteria for high risk --- Technical --- G0121, Colorectal cancer screening; colonoscopy on individual not meeting criteria for high risk Diagnosis Code(s): --- Professional --- Z12.11, Encounter for screening for malignant neoplasm of colon K57.30, Diverticulosis of large intestine without perforation orabscess without bleeding --- Technical --- Z12.11, Encounter for screening for malignant neoplasm of colon K57.30, Diverticulosis of large intestine without perforation orabscess without bleeding CPT copyright 2020 [employer]. All rights reserved. The codes documented in this report are preliminary and upon office correspondent reviewmay be revised to meet current compliance requirements. Recognized by the [employer] for promoting quality in endoscopy Reece Swain DO ENDOSCOPY PROCEDURES Final Res ult from Last 3 Months Insurance Advance Directives For more information, please contact: [phone] Documents on File Type Date Recorded Patient Landscaper Helper Expl anation ADVANCE DIRECTIVE 04/16/2024 8:38 PM [facility] DNR ADVANCE DIRECTIVE 04/16/2024 7:16 AM [facility] DNR * Full Code (Latest Code Status on File) Date Activated Date Inactivated Comments 11/07/2024 8:32 AM 11/07/2024 3:27 PM * LIMITED - No CPR Date Activated Date Inactivated Comments 04/15/2024 4:10 PM 04/20/2024 5:14 PM Question Answer Comments Provide aggressive medical m anagement before a full cardiopulmonary arrest occurs. Use antibiotics, IV Fluids, and medical treatment unless specifically selected below: No intubation Care Teams Product Engineer Relationship Specialty Start Date End Date Ronald Capps MD [address] [facility] [address] [place] [address] PCP - General Family Medicine 05/21/24 Sean Tobin MD [address] [facility] [address] [facility] [address] [place] [address] Consulting Physician Cardiology 06/04/24
--- OUTSIDE RECORDS SUMMARY | 2025-01-28 11:38 | XMS_ITS | Clinical Summary ---
Author Organization [facility] [place] [address] [facility] 5th [place] [address] Care Team Providers Care Crematorium Operator Name Role Phone Ronald Capps MD Primary Care Provider + Sean Tobin MD Unavailable Allergies Active Allergy Reactions Criticality Noted Date Comments Nilo Inhibitors Cough Low 04/15/2024 Iodinated Contrast Media Anaphylaxis High 04/15/2024 Throat was closing up and pt could not breath and pt was intubated due to CT contrast in 2017 at On license of [facility] Penicillins Anaphylaxis High 04/15/2024 Shrimp Shortness of breath High 04/15/2024 Streptococcus Pneumoniae Anaphylaxis High 04/15/2024 Medications aspirin 81 mg enteric coated tablet Take 1 tablet (81 mg total) by mouth 2 (two) times a day Active sacubitriL-valsar collins (ENTRESTO) 97-103 mg tabletIndications :chronic heart failure Take 1 tablet by mouth 2 (two) times a day 180 tablet 3 024 Active magnesium oxide (MAG-OX) 400 mg (241.3 mg elemental magnesium) tabletIndications :Chronic systolic congestive heart failure (HCC) Take 1 tablet (400 mg total) by mouth 2 (two) times a day 180 tablet 3 024 Active fluticasone propionate (FLONASE) 50 mcg/actuation nasal sprayIndications: Medication refill Administer 2 sprays into each nostril daily 1 each [address] (CYMBALTA) 60 mg capsuleIndication [...] immediately consume food. DX: E16.2 100 each 024 2024 Active lancets miscIndications:H ypoglycemia Please [...] (two) times a day 60 capsule 1 Active albuterol HFA (PROVENTIL HFA,VENTOLIN HFA,PROAIR HFA) 90 mcg/actuation inhaler Inhale 2 puffs every 6 (six) hours as needed for wheezing 1 each Active empagliflozin (JARDIANCE) 25 mg tabletIndications :Nonischemic cardiomyopathy (HCC) Take 1 tablet (25 mg total) by mouth daily 90 tablet 3 025 Active LORazepam (ATIVAN) 1 mg tablet Take 1 tablet (1 mg total) by mouth 3 (three) times a day as needed Active cetirizine 10 mg capsule Take 10 [...] 1 tablet (60 mg total) by mouth 025 Active tirzepatide, weight loss, (Zepbound) 2.5 mg/0.5 mL pen injectorIndicatio ns:Class 3 severe obesity with serious comorbidity and body mass index (BMI) of 50.0 to 59.9 in adult Inject 0.5 mL (2.5 mg total) under the skin every 7 days 2 mL 025 Active lurasidone (LATUDA) 40 mg tablet Take 1 tablet (40 mg total) by mouth daily 30 tablet 024 2024 Discontinued Active Problems Problem Noted Date Diagnosed Date Encounter for weight management 01/19/2025 Metabolic syndrome 01/19/2025 Hx of Retinal detachment with recent vision saini ges 11/12/2024 Hematochezia 08/22/2024 Acute recurrent pansinusitis 08/22/2024 Bleeding grade I hemorrhoids 06/06/2024 Assessment & Plan (06/06/2024 1:33 PM TELEMARKETING REPRESENTATIVE): We will attempt using hydrocortisone suppositories for the bleeding. He does have scheduled colonoscopy in a few months, this could possibly be addressed at that time. Encounter for screening colonoscopy 05/23/2024 Class 3 severe obesity with serious comorbidity and body mass index (BMI) of 50.0 to 59.9 in adult 05/21/2024 Assessment & Plan (07/24/2024 2:15 PM TELEMARKETING REPRESENTATIVE): Body mass index is 52.66 kg/m . [...] not drink alcohol. - Will send to [facility] weight loss clinic Assessment & Plan (05/21/2024 8:18 PM TELEMARKETING REPRESENTATIVE): Body mass index is 54.24 kg/m . [...] 05/21/2024 Assessment & Plan (05/21/2024 7:43 PM TELEMARKETING REPRESENTATIVE): Patient with history of prediabetes. Patient would BMI of 54.2, hypertension, hyperlipidemia. Patient does report history of elevated blood sugars in which he does check sugars daily. Patient additionally has history of hypoglycemia for which he is required to have a glucometer. Plan A1c today Send for glucometer with supplies Lumbar back pain with sciatica 05/21/2024 Assessment & Plan (05/21/2024 8:48 PM TELEMARKETING REPRESENTATIVE): No red flag symptoms Associated sciatica Patient [...] 05/21/2024 Assessment & Plan (05/21/2024 8:15 PM TELEMARKETING REPRESENTATIVE): Patient with frequent falls associated with lower [...] 05/21/2024 Assessment & Plan (05/21/2024 7:34 PM TELEMARKETING REPRESENTATIVE): Controlled Patient compliant with medication Medications; carvedilol [...] 05/21/2024 Assessment & Plan (05/21/2024 8:40 PM TELEMARKETING REPRESENTATIVE): Cardiology monitoring with labs q.3 months Patient taking daily magnesium supplement 400 mg b.i.d. Hypokalemia 05/21/2024 Assessment & Plan (05/21/2024 8:40 PM TELEMARKETING REPRESENTATIVE): Cardiology monitoring with labs q.3 months Patient on potassium supplement 20 mEq daily Patient also on spironolactone Chronic systolic congestive heart failure 2023 Overview (05/21/2024): Cardiac history including: NICM, CHF systolic, LBBB, s/p removal PM/defibrillation 2nd to Infected lead UTI and removed SANDOVAL: EF 19% 04/25: TTE Now 35-40% Follows with [facility]: Dr. Tobin: last apt last week. No changes med Apts q3 month MEDS: Aspirin 81 mg, carvedilol 25 mg b.i.d, Jardiance 25 mg, Entresto 97-103 mg b.i.d., spironolactone 25 mg. Diuretic: Lasix 40 mg Not on statin Assessment & Plan (05/21/2024 8:03 PM TELEMARKETING REPRESENTATIVE): Cardiac history including: NICM, CHF systolic, LBBB, s/p removal PM/defibrillation 2nd to Infected lead UTI and removed EF improving on last SANDOVAL no 35-40% from 19% Follows with [facility]: Dr. Tobin: No changes at last apt. [...] 05/21/2024 Assessment & Plan (05/21/2024 8:13 PM TELEMARKETING REPRESENTATIVE): Following with Cardiology who is managing see assessment and plan for chronic CHF Hx of reomval of internal ca rdiac defibrillator (ICD) and pacemaker 05/21/2024 Assessment & Plan (05/21/2024 8:05 PM TELEMARKETING REPRESENTATIVE): Patient with dual-chamber cardiac defibrillator and pacemaker. [...] 05/21/2024 Assessment & Plan (05/21/2024 8:06 PM TELEMARKETING REPRESENTATIVE): Frequent UTIs. History of urosepsis with infected dual-chamber cardiac pacemaker/defibrillator requiring removal. Plan - Screen with UA as needed - Flomax 0.4 mg Mixed hyperlipidemia 05/21/2024 Assessment & Plan (05/21/2024 8:09 PM TELEMARKETING REPRESENTATIVE): Controlled on recent labs Not on statin [...] surgeon to have repair. Plan - Continue [id number] supportive care - Will send for surgical consult Assessment & Plan (06/06/2024 1:37 PM TELEMARKETING REPRESENTATIVE): Recurrent issue- he has had surgical repair [...] 05/21/2024 Assessment & Plan (05/21/2024 7:46 PM TELEMARKETING REPRESENTATIVE): Pt with DYLON previously on BiPap. STOPBANG: [...] 19% 04/25: TTE Now 35-40% Follows with [facility]: Dr. Tobin: last apt last week. No changes med Apts q3 month MEDS: Aspirin 81 mg, carvedilol 25 mg b.i.d, Jardiance 25 mg, Entresto 97-103 mg b.i.d., spironolactone 25 mg. Diuretic: Lasix 40 mg Not on statin Assessment & Plan (05/21/2024 8:34 PM TELEMARKETING REPRESENTATIVE): See plan for Chronic sys CHF At high risk for exposure to HIV on Prep 024 Assessment & Plan (05/21/2024 8:28 PM TELEMARKETING REPRESENTATIVE): MSM relationship Patient reports sexually active with [...] 05/21/2024 Assessment & Plan (05/21/2024 8:16 PM TELEMARKETING REPRESENTATIVE): Patient with family history of primary relative [...] 05/21/2024 Assessment & Plan (05/21/2024 8:46 PM TELEMARKETING REPRESENTATIVE): Patient was sciatica in the setting of [...] 05/21/2024 Assessment & Plan (05/21/2024 7:32 PM TELEMARKETING REPRESENTATIVE): Patient was sciatica in the setting of [...] 08/22/2024 Assessment & Plan (05/21/2024 8:18 PM TELEMARKETING REPRESENTATIVE): Stable, patient denying any cardiac symptoms at this time Compliant with all his medications Following with Cardiology who is managing q.3 months Labs today Encounters Date Type Department Care Team Description 01/24/2025 3:00 PM CDT Office Visit [facility] Metabolic Weight Management [address] [place] [address] [address] [place] [address] Kayleigh Piña MD Encounter for weight management (Primary Dx); Metabolic syndrome; Class 3 severe obesity with serious comorbidity and body mass index (BMI) of 50.0 to 59.9 in adult; Chronic prescription opiate use; Chronic systolic congestive heart failure (HCC); Mixed hyperlipidemia; DYLON (obstructive sleep apnea); Prediabetes; Primary hypertension 01/24/2025 Telephone [facility] Metabolic Weight Management [address] [place] [address] [address] [place] [id number] Amber Bragg, ARCHIVIST [employer] HISTORY Prior Auth 01/20/2025 9:20 AM CDT - 01/20/2025 11:59 PM CDT Hospital Encounter [facility] [address] [place] [address] Class 3 severe obesity with serious comorbidity and body mass index (BMI) of 50.0 to 59.9 in adult, unspecified obesity type; Metabolic and nutritional disorder Discharge Disposition: Discharge to home or self care 01/20/2025 Results Follow-Up [facility] Metabolic Weight Management [address] [place] [address] [address] [place] [address] Jessie More PA US RUQ 12/23/2024 1:00 PM CDT Telemedicine [facility] Metabolic Weight Management [facility] Office [address], [address] [place] [address] Jessie More PA Class 3 severe obesity with serious comorbidity and body mass index (BMI) of 50.0 to 59.9 in adult, unspecified obesity type (Primary Dx); DYLON (obstructive sleep apnea); Metabolic and nutritional disorder; Encounter for weight management; Encounter for exercise counseling; Dietary counseling and surveillance; Chronic systolic congestive heart failure (HCC); Primary hypertension; LBBB (left bundle branch block) 12/23/2024 Telephone [facility] [address] [place] [address] Health 4th Floor [address] [place] [address] Carlos Smith 11/13/2024 Results Follow-Up [facility] Primary Care at [address] [phone] Ronald Capps MD HIV 1/2 Antibody plus p24 Antigen Blood, HSV 1 IgG Antibody Blood, HSV 2 IgG Antibody Blood, Additional followed-up results: 16 11/12/2024 11:30 AM CDT Lab [facility] - Outpatient Center at [address] [address] At high risk for exposure to HIV on Prep; Prediabetes; Screening for thyroid disorder; Mixed hyperlipidemia; Annual physical exam; B12 deficiency; Vitamin D deficiency; Hypomagnesemia 11/12/2024 11:00 AM CDT Office Visit [facility] Primary Care at [address] [phone] Ronald Capps MD Hx of Retinal detachment with recent vision changes (Primary Dx); Encounter to establish care; Class 3 severe obesity with serious comorbidity and body mass index (BMI) of 50.0 to 59.9 in adult, unspecified obesity type; At high risk for exposure to HIV on Prep; Primary hypertension 11/07/2024 9:50 AM CDT Anesthesia Event [address] [address] [place] Neves DO 11/07/2024 9:30 AM CDT - 11/07/2024 10:00 AM CDT Surgery [address] [address] Reece Swain DO COLONOSCOPY 11/07/2024 8:00 AM CDT - 11/07/2024 11:22 AM CDT Hospital Encounter [address] [address] Reece Swain, Discharge Disposition: Discharge to home or self care 11/07/2024 Telephone [facility] Gastroenterology at [address] [place] [address] Reina Castro MA 11/07/2024 Telephone [facility] Gastroenterology at [address] [place] [address] Bettina Singleton MA 11/05/2024 Orders Only [facility] Primary Care at [address] [phone] Ronald Capps MD 11/04/2024 Orders Only [facility] Primary Care at [address] [address] Ronald Capps MD At high risk for exposure to HIV on Prep (Primary Dx); Annual physical exam; Prediabetes; Screening for thyroid disorder; Mixed hyperlipidemia; Hypomagnesemia; Frequent UTI; Chronic prescription opiate use; Vitamin D deficiency; B12 deficiency from Last 3 Months Immunizations Immunization Administration Dates Next Due Influenza, Trivalent, Preser vative Free, Intramuscular 04/09/2024 Influenza, Unspecified 04/24/2023(Deferred: Viv ent Refused) Tdap 07/28/2024 Surgical History Surgery Date Site/Laterality Comments HERNIA REPAIR COLONOSCOPY 07/03/2016 - 07/02/2017 [facility] COLONOSCOPY 11/07/2024 Bilateral Medical History Medical History Date Comments GERD (gastroesophageal reflux disease) Arthritis Asthma Migraines Neuromuscular disorder (HCC) Blindness HFrEF (heart failure with reduced ejection fract ion) (HCC) MDD (major depressive disorder) DM (diabetes mellitus) (HCC) Cardiomyopathy (HCC) DYLON (obstructive sleep apnea) Morbid obesity (HCC) HTN (hypertension) Vitamin D deficiency Diverticulitis Family History Medical History Relation Name Comments Arthritis Father Gurpreet COPD Father Gurpreet Depression Father Gurpreet Diabetes Father Gurpreet Early Father Gurpreet Heart attack Father Gurpreet Hypertension Father Gurpreet Mental illness Father Gurpreet Stroke Father Gurpreet Arthritis Maternal Grandmother Keesha Allergy (severe) Mother Tamika Asthma Mother Tamika COPD Mother Tamika Clotting disorder Mother Tamika Early Mother Tamika Hypertension Mother Tamika Mental illness Mother Tamika Obesity Mother Tamika Colon cancer Mother's Brother Arthritis Paternal Grandfather Raina Diabetes Paternal Grandfather Raina Heart disease Paternal Grandfather Raina Hypertension Paternal Grandfather Raina Alzheimer's disease Paternal Grandmother Martha Arthritis Paternal Grandmother Martha Depression Paternal Grandmother Martha Diabetes Paternal Grandmother Martha Heart disease Paternal Grandmother Martha Hypertension Paternal Grandmother Martha Memory loss Paternal Grandmother Martha Stroke Paternal Grandmother Martha Allergy (severe) Sister Tiff Asthma Sister Tiff COPD Sister Tiff Depression Sister Tiff Hypertension Sister Tiff Mental illness Sister Tiff Obesity Sister Tiff Relation Name Status Comments Father Gurpreet Maternal Grandmother Keesha Mother Tamika Mother's Brother Paternal Grandfather Raina Paternal Grandmother Martha Sister Tiff Social History Tobacco Use Types Packs/Day Years Used Date Smoking Tobacco: Never Smokeless Tobacco: Never [employer] Utilities Answer Date Recorded In the past 12 months has [employer], [facility], oil, or water Arzeda threatened to shut off services in your [...] week 04/22/2024 How often do you attend [facility] or alevism services? More than 4 times per year 04/22/2024 Do you belong to any clubs o r organizations such as tenriism groups, unions, fraternal or athletic groups, or [...] money to buy more. Never true 04/22/20 Within the past 12 months, t he [...] any time in the past 12 m [facility], were you homeless or living in a skilled nursing (including now)? Patient declined 04/22/2024 Personal Safety [...] Orientation Rogers 04/15/2024 7: 11 PM CDT Obstetrics History Last Filed Vital Signs Vital Sign Reading [...] 174.5 cm (5' 8.72) 01/24/2025 2:55 PM CDT Body Mass Index 54.01 01/24/2025 2:55 PM CDT Plan of Treatment Health Maintenance Due Date Last Done Comments Varicella Vaccines (1 of 2 - 13+ 2-dose series) 1997 Regular Well Visit/Exam 18-64 2002 HPV Vaccines (1 - 3-dose SCDM series) 11/04/2011 Influenza Vaccine (#1) 2025 04/09/2024 Pneumococcal vaccine <65 (1 of 2 - PCV) 07/08/2025 Postponed from 11/04/2003 (Patient declined, but will receive in the future) Depression Screening 11/12/2025 11/12/2024, 07/24/2024, 07/24/2024, Additional history exists DTaP/Tdap/Td Vaccine (2 - Td or Tdap) 07/28/2034 07/28/2024 Hepatitis B Screening Completed 11/12/2024 Hepatitis C Screening Completed 11/12/2024, 024 Procedures Procedure Name Priority Date/Time Associated Diagnosis [...] and agrees with it. Electronically signed by: Reeec Anaya M.D., Ph.D Narrative 01/20/2025 4:41 PM [...] by: Reece Anaya M.D., Ph.D [facility] US PROCEDURES Fin al Result * N. gonorrhoeae/C. trachomatis Amplification Urine (11/12/2024 11:23 AM CDT) C. trachomatis Not Detected [facility] Comment:Testing performed by : [facility], [address] [place] [address] N. gonorrhoeae Not Detected JESSICA HOWE Comment: Interpretive Data This assay detects Chlamydia trachomatis and Neisseria gonorrhoeae by nucleic acid amplification testing (NAAT). This assay has been cleared by the [place] Food and Drug administration. The performance characteristics of this test have been verified by the [facility] Molecular Infectious Disease laboratory. The performance characteristics of this test have not been evaluated in individuals less than 14 years of age. Current Interpretive Data was last revised on 2023. Testing performed by: [facility], [address] [place]., [address] Urine (None) 11/12/2024 11:2 3 AM CDT 11/13/2024 10:14 AM CDT Ronald Capps MD LAB MICROBIOLOGY - [facility] ORDERABLES Final Result Performing Organization Address City/State/[facility] Co de Phone Number JESSICA [id number] [address] Department [place] [address] [facility] * (ABNORMAL) Drugs of Abuse Screen, Urine with Reflex Confirmation (11/12/2024 11:23 AM CDT) [facility] Amphetamine, ur Not Detected CutOff 500ng/mL Comment: Interpretive Data - Amphetamines: Samples containing greater than 500 ng/mL d-methamphetamine or other cross-reacting amphetamine compounds are reported as positive. Amphetamine immunoassays are subject to significant false positive rates due to cross-reactivity of non-amphetamine drugs. Confirmatory testing required for definitive results. Current Interpretive Data was last reviewed 2023. Testing performed by: [facility], [address] [place] [address]., [address] Barbiturates, ur Not Detected CutOff 200ng/mL JESSICA HOWE Comment: Interpretive Data - Barbiturates: Samples containing greater than 200 ng/mL secobarbital or other cross-reacting barbiturate compounds are reported as positive. False positive and false negative results are possible. Confirmatory testing required for definitive results. Current Interpretive Data was last reviewed 2023. Testing performed by: [facility], [address] [place] [address]., [address] Benzodiazepines, ur Screen Positive, presumptive (A) CutOff 100ng/mL [facility] Comment: Interpretive Data - Benzodiazepines: Samples containing greater than 100 ng/mL nordiazepam or other cross-reacting compounds are reported as positive. False positive and false negative results are possible. Confirmatory testing required for definitive results. Current Interpretive Data was last reviewed 2023. Testing performed by: [facility], [address] [place] [address]., [address] Cannabinoids, ur Not Detected CutOff 50 ng/mL [facility] Comment: Interpretive Data - Cannabinoids: Samples containing greater than 50 ng/mL delta-9 THC -COOH or other cross- reacting compounds are reported as positive. False positive and false negative results are possible. Confirmatory testing required for definitive results. Current Interpretive Data was last reviewed 2023. Testing performed by: [facility], [address] [place] [address]., [address] Cocaine, ur Not Detected CutOff 150ng/mL [facility] Comment: Interpretive Data - Cocaine: Samples containing greater than 150 ng/mL benzoylecgonine or other cross- reacting compounds are reported as positive. False positive and false negative results are possible. Confirmatory testing required for definitive results. Current Interpretive Data was last reviewed 2023. Testing performed by: [address] [address] Fentanyl, Ur Not Detected CutOff 5 ng/mL [facility] Comment: Interpretive Data - Fentanyl: Samples containing greater than 5 ng/mL norfentanyl, fentanyl, or other cross-reacting fentanyl compounds are reported as positive. False positive and false negative results are possible. Confirmatory testing required for definitive results. Current Interpretive Data was last reviewed 2023. Testing performed by: [address] [address] Methadone, ur Not Detected CutOff 300ng/mL [facility] Comment: Interpretive Data - Methadone: Samples containing greater than 300 ng/mL d,l-methadone or other cross-reacting compounds are reported as positive. False positive and false negative results are possible. Confirmatory testing required for definitive results. Current Interpretive Data was last reviewed 2023. Testing performed by: [address] [address] Opiates, ur Not Detected CutOff 300ng/mL [facility] Comment: Interpretive Data - Opiates: Samples containing greater than 300 ng/mL morphine or other cross-reacting compounds are reported as positive. False positive and false negative results are possible. Confirmatory testing required for definitive results. Current Interpretive Data was last reviewed 2023. Testing performed by: [address] [address] Oxycodone, ur Not Detected CutOff 100ng/mL JESSICA Comment: Interpretive Data - Oxycodone: Samples containing greater than 100 ng/mL oxycodone or other cross-reacting compounds are reported as positive. False positive and false negative results are possible. Confirmatory testing required for definitive results. Current Interpretive Data was last reviewed 2023. Testing performed by: [address] [address] Phencyclidine, ur Not Detected CutOff 25 ng/mL [facility] Comment: Interpretive Data - Phencyclidine: Samples containing greater than 25 ng/mL phencyclidine or other cross-reacting compounds are reported as positive. False positive and false negative results are possible. Confirmatory testing required for definitive results. Current Interpretive Data was last reviewed 2023. Testing performed by: [address] [address] Urine Creatinine 99 mg/dL [facility] Comment: Interpretive Data Urine Creatinine: < 10 mg/dL is extremely dilute = or > 10 but < 20 mg/dL is dilute = or > 20 mg/dL is normal Current Interpretive Data was last revised on 2017. Testing performed by: [address] [address] Urine 11/12/2024 11:2 3 AM CDT 11/12/2024 6:55 PM CDT Narrative [facility] - 11/12/2024 8:16 PM CDT Drug of Abuse screening is performed by immunoassay for medical purposes only. This is not to be used for Pain Management purposes. If Detected, confirmation testing will be performed for Amphetamines, Cocaine, Fentanyl, Methadone, Opiates, Oxycodone or Phencyclidine. Ronald Capps MD LAB URINE ORDERABLES Fin al Result Performing Organization Address [facility] de Phone Number JESSICA HOWE [address] [address] [place] [address] * eGFR (11/12/2024 11:23 AM CDT) eGFR [...] was last reviewed 2021. Testing performed by: [address] [address] Blood 11/12/2024 11:2 3 AM CDT 11/12/2024 7:02 PM CDT us Ronald Capps MD LAB BLOOD ORDERABLES Fin al Result Performing Organization Address [facility] Co de Phone Number JESSICA HOWE [phone] [place] [address] * Thyroid Function Colbert (11/12/2024 11:23 AM CDT) TSH 1.18 0.30 - 4.20 mcIUnit/mL Comment:Testing performed by : [address] [address] Blood 11/12/2024 11:2 3 AM CDT 11/12/2024 6:55 PM CDT Ronald Capps MD LAB BLOOD ORDERABLES Fin al Result Performing Organization Address [facility] de Phone Number JESSICA HOWE [phone] [address] Department [place] [address] * HIV 1/2 Antibody plus p24 Antigen Blood (11/12/2024 11:23 AM CDT) Pathologist [facility] [place] HIV 1/2 ab + p24 ag Nonreactive Nonreactive Comment: Nonreactive for HIV-1 antigen and HIV-1/HIV-2 antibodies. No laboratory evidence of HIV infection. If acute HIV infection is suspected, consider testing for HIV-1 RNA. Testing performed by: [address] [address] Blood 11/12/2024 11:2 3 AM CDT 11/12/2024 6:55 PM CDT Ronald Capps MD LAB MICROBIOLOGY - GENER AL ORDERABLES Final Result Performing Organization Address [facility] de Phone Number JESSICA Silva33 [facility] [place] [address] * (ABNORMAL) Urinalysis reflex to microscopic and culture Urine, clean voided (11/12/2024 11:23 AM CDT) Pathologist [facility] [place] Color, ur Yellow Yellow Comment:Testing performed by : [address] [address] Clarity, ur Clear Clear [facility] Comment:Testing performed by : [address] [address] Specific gravity, ur 1.024 1.003 - 1.030 JESSICA Comment:Testing performed by : [address] [address] pH, urine 6.0 JESSICA Comment: Interpretive Data U rine pH is affected by diet, medications, systemic acid-base disturbances, and renal tubular function. pH may affect urinary stone formation. For example, urine pH below 6.0 may help reduce the tendency for calcium phosphate stones and pH greater than 6.0 may reduce the tendency for uric acid stone formation. Source: [facility] Current Interpretive Data was last revised on 2017 Testing performed by: [facility], [address] [place] [address]., [address] Protein, ur ql Negative Negative [facility] Comment:Testing performed by : [address] [address] Glucose, ur ql 4+(A) Negative [facility] Comment:Testing performed by : [address] [address] Ketones, ur Negative Negative [facility] Comment:Testing performed by : [facility], [address] [place] [address]., [address] Bilirubin, ur Negative Negative [facility] Comment:Testing performed by : [address] [address] Blood, ur Negative Negative [facility] Comment:Testing performed by : [address], [address] Urobilinogen, ur <2.0 <2.0 mg/dL [facility] Comment:Testing performed by : [address] [address] Nitrite, ur Negative Negative [facility] Comment:Testing performed by : [address] [address] Leukocyte esterase, ur Negative Negative [facility] Comment:Testing performed by : [address], [address] UA reflex comment Reflex conditions for microscopic UA and culture not met. [facility] Comment:Testing performed by : [address], [address] Urine, clean voided 11/12/2024 11:23 AM CDT 11/12/2024 6:55 PM CDT us Ronald Capps MD LAB MICROBIOLOGY - GENER AL ORDERABLES Final Result [facility] Department [place] [address] * Hepatitis C antibody Blood (11/12/2024 11:23 [...] last revised on 2019. Testing performed by: [address] [address] Blood 11/12/2024 11:2 3 AM CDT 11/12/2024 6:55 PM CDT Ronald Capps MD LAB MICROBIOLOGY - GENER AL ORDERABLES Final Result Performing Organization Address [facility] de Phone Number [facility] [address] [facility] [place] [address] * (ABNORMAL) Vitamin D 25 hydroxy (11/12/2024 11:23 AM CDT) [facility] Vitamin D 25-OH 29(L) 30 - 80 ng/mL Comment:Testing performed by : [facility], [address] [place] [address]., [address] Blood 11/12/2024 11:2 3 AM CDT 11/12/2024 6:55 PM CDT Ronald Capps MD LAB BLOOD ORDERABLES Fin al Result Performing Organization Address [facility] Co de Phone Number [facility] [address] [facility] [place] [address] * HSV 2 IgG Antibody Blood (11/12/2024 11:23 AM CDT) [facility] HSV 2 IgG Nonreactive Nonreactive Comment: Interpretive Data 1. Nonreactive: No detectable IgG antibody to HSV-2. 2. Equivocal: Presence or absence of detectable antibodies to HSV-2 cannot be determined and the test should be repeated. 3. Reactive: Indicates presence of detectable IgG antibody to HSV-2. Current interpretive data was last revised on 2022. Testing performed by: [facility], [address] [place]., [address] Blood 11/12/2024 11:2 3 AM CDT 11/13/2024 10:02 AM CDT Ronald Capps MD LAB MICROBIOLOGY - GENER AL ORDERABLES Final Result Performing Organization Address [facility] de Phone Number [facility] [address] [facility] Department [place] [address] * (ABNORMAL) HSV 1 IgG Antibody Blood (11/12/2024 11:23 AM CDT) Pathologist [facility] [place] HSV 1 IgG Reactive( A) Nonreactive Comment: Interpretive Data 1. Nonreactive: No detectable IgG antibody to HSV-1. 2. Equivocal: Presence or absence of detectable antibodies to HSV-1 cannot be determined and the test should be repeated. 3. Reactive: Indicates presence of detectable IgG antibody to HSV-1. Current interpretive data was last revised on 2019. Testing performed by: [facility], [address] [facility], [place]., [address] Blood 11/12/2024 11:2 3 AM CDT 11/13/2024 10:02 AM CDT Ronald Capps MD LAB MICROBIOLOGY - GENER AL ORDERABLES Final Result Performing Organization Address [facility] de Phone Number [place] [phone] [facility] Department [place] [address] * RPR Blood (11/12/2024 11:23 AM CDT) Pathologist [facility] [place] RPR Nonreactive Nonreactive Comment:Testing performed by : [facility], [address] [place] [address], [place]., [address] Blood 11/12/2024 11:2 3 AM CDT 11/12/2024 6:55 PM CDT Ronald Capps MD LAB MICROBIOLOGY - GENER AL ORDERABLES Final Result Performing Organization Address [facility] Co de Phone Number JESSICA Silva33 [facility] [place] [address] * Hepatitis B surface antibody (immune status) Blood (11/12/2024 11:23 AM CDT) HBsAb (immune status) Nonreactive Comment: Interpretive Data [...] last revised on 19. Testing performed by: [address] [address] Blood 11/12/2024 11:2 3 AM CDT 11/12/2024 6:55 PM CDT Ronald Capps MD LAB MICROBIOLOGY - GENER AL ORDERABLES Final Result Performing Organization Address [facility] de Phone Number JESSICA [address] [facility] [place] [address] * Hepatitis B Surface Antigen Blood (11/12/2024 11:23 AM CDT) HepBsAg Nonreactive Nonreactive Comment:Testing performed by : [facility], [address] [place] [address]., [address] Blood 11/12/2024 11:2 3 AM CDT 11/12/2024 6:55 PM CDT Ronald Capps MD LAB MICROBIOLOGY - GENER AL ORDERABLES Final Result Performing Organization Address [facility] Co de Phone Number JESSICA [address] [facility] [place] [address] * (ABNORMAL) CBC without differential (11/12/2024 11:23 AM CDT) WBC 8.25 3.80 - 9.90 K/cumm Comment:Testing performed by : [address], [address] Hgb 15.3 13.0 - 17.5 g/dL [facility] Comment:Testing performed by : [address], [address] Hct 48.9 38.9 - 50.3 % [facility] Comment:Testing performed by : [facility], [address] [place] [address], [address] Plt 189 150 - 400 K/cumm [facility] Comment:Testing performed by : [address], [address] MPV 13.0(H) 9.1 - 12.3 fL [facility] Comment:Testing performed by : [address], [address] RBC 5.08 4.30 - 5.80 M/cumm [facility] Comment:Testing performed by : [address], [address] MCV 96.3 81.3 - 96.4 fL [facility] Comment:Testing performed by : [address], [address] MCH 30.1 27.1 - 33.3 pg [facility] Comment:Testing performed by : [address], [address] MCHC 31.3(L) 32.3 - 35.7 g/dL [facility] Comment:Testing performed by : [address], [address] RDW CV 14.0 11.1 - 14.9 % [facility] Comment:Testing performed by : [address], [address] RDW SD 50.0(H) 35.7 - 48.1 fL [facility] Comment:Testing performed by : [address], [address] NRBC abs 0.00 0.00 - 0.01 K/cumm [facility] Comment:Testing performed by : [address] [address] Blood 11/12/2024 11:2 3 AM CDT 11/12/2024 6:55 PM CDT Ronald Capps MD LAB BLOOD ORDERABLES Fin al Result Performing Organization Address [facility] Co de Phone Number [facility] [address] [facility] [place] [address] * Magnesium (11/12/2024 11:23 AM CDT) Pathologist [facility] [place] Magnesium 2.0 1.4 - 2.5 mg/dL Comment:Testing performed by : [address] [address] Blood 11/12/2024 11:2 3 AM CDT 11/12/2024 6:55 PM CDT Ronald Capps MD LAB BLOOD ORDERABLES Fin al Result Performing Organization Address [facility] de Phone Number [facility] [address] [facility] [place] [address] * Hemoglobin A1c (11/12/2024 11:23 AM CDT) Hgb A1C 5.3 4.0 - 5.6 % Comment:Testing performed by : [address] [address] Estimated Average Glucose 105 mg/dL JESSICA Comment: The ADA recommends reporting an estimated Average Glucose (eAG) with all Hemoglobin A1c results using the equation derived from a study of 507 normal and diabetic adults. Minority populations were underrepresented and children were not included. (Diabetes Care 31:5081-1847, 2008). The eAG is not equivalent to a fasting glucose. Testing performed by: [address] [address] Blood 11/12/2024 11:2 3 AM CDT 11/12/2024 6:55 PM CDT us Ronald Capps MD LAB BLOOD ORDERABLES Fin al Result JESSICA [address] [facility] Department [place] [address] * Vitamin B12 (11/12/2024 11:23 AM CDT) Vitamin B12 666 230 - 1,250 pg/mL Comment:Testing performed by : [facility], [address] [place] [address]., [address] Blood 11/12/2024 11:2 3 AM CDT 11/12/2024 6:55 PM CDT Ronald Capps MD LAB BLOOD ORDERABLES Fin al Result Performing Organization Address [facility] Co de Phone Number JESSICA [address] [facility] Department [place] [address] * (ABNORMAL) Lipid panel (11/12/2024 11:23 AM [...] last revised on 2018. Testing performed by: [facility], [address] [place] [address]., [address] Triglycerides 204(H) <=149 mg/dL JESSICA Comment: Interpretive Data Ages < [...] last revised on 2018. Testing performed by: [facility], [address] [place] [address]., [address] HDL 29(L) >=40 mg/dL [facility] Comment: Interpretive Data Ages < or = [...] last revised on 2018. Testing performed by: [address] [address] LDL, calculated 75 <=129 mg/dL [facility] Comment: Interpretive Data Ages < or = [...] last revised on 2024. Testing performed by: [address] [address] Non-HDL Cholesterol 109 mg/dL JESSICA Comment: Interpretive [...] last revised on 2018. Testing performed by: [address] [address] Chol/HDL ratio 5 JESSICA Comment:Testing performed by : [address] [address] Blood 11/12/2024 11:2 3 AM CDT 11/12/2024 6:55 PM CDT Ronald Capps MD LAB BLOOD ORDERABLES [facility] al Result [facility] [address] Department [place] [address] * Comprehensive metabolic panel (11/12/2024 11:23 AM CDT) Sodium 142 135 - 145 mmol/L Comment:Testing performed by : [facility], [address] [place] [address]., [address] Potassium, pl 3.7 3.3 - 4.9 mmol/L JESSICA Comment:Testing performed by : [facility], [address] [place] [address]., [address] Chloride 105 97 - 110 mmol/L JESSICA Comment:Testing performed by : [address] [address] CO2 29 22 - 32 mmol/L JESSICA Comment:Testing performed by : [address] [address] Anion gap 8 2 - 15 mmol/L JESSICA Comment:Testing performed by : [address] [address] BUN 11 6 - 25 mg/dL [facility] Comment:Testing performed by : [address] [address] Creatinine 0.90 0.80 - 1.30 mg/dL [facility] Comment:Testing performed by : [address] [address] Glucose 101 70 - 199 mg/dL CERNER [...] classification and Diagnosis of Diabetes Diabetes Care 202; 46: S19-S40. Current interpretive data was last revised 2022. Testing performed by: [address], [address] Calcium 9.4 8.5 - 10.3 mg/dL [facility] Comment:Testing performed by : [address], [address] Bilirubin, total 0.5 0.1 - 1.2 mg/dL [facility] Comment:Testing performed by : [address] [address] Protein, pl 6.7 6.5 - 8.5 g/dL [facility] Comment:Testing performed by : [address], [address] Albumin 3.9 3.5 - 5.0 g/dL [facility] Comment:Testing performed by : [address], [address] Alk phos 56 40 - 130 Units/L [facility] Comment:Testing performed by : [address], [address] ALT 14 7 - 55 Units/L [facility] Comment:Testing performed by : [address], [address] AST 25 10 - 50 Units/L [facility] Comment:Testing performed by : [address], [address] Blood 11/12/2024 11:2 3 AM CDT 11/12/2024 6:55 PM CDT us Ronald Capps MD LAB BLOOD ORDERABLES Fin al Result JESSICA [address] [facility] Department [place] [address] * Colonoscopy (11/07/2024 8:09 AM CDT) Anatomical Region Laterality Modality Other Narrative Procedure Note Reece Swain DO - 11/07/2024 8:09 AM CDT [place] Patient Name: Jesus Alberto Olivas Procedure Date: 11/07/2024 8:09 AM Date of : 1985 Admit Type: Outpatient Age: 39 Gender: Male Attending MD: Reece Swain D.O. Room: [facility] ENDOSCOPY ROOM 3 Note Status: Finalized Patient Profile: Refer to note in patient chart for documentation of history and physical. Procedure: Colonoscopy Indications: Screening for colorectal malignant neoplasm,previous history of diverticulitis and maternal uncle with colon cancer at age 34. Last colonoscopy: 2016 Referring MD: Ronald Capps M.D. Providers: Reece T. Klucka, D.O. Impression: - The examined portion of [...] scope was passed under direct vision. TheColonoscope [id number] was introduced through the anus and advanced [...] perforation orabscess without bleeding CPT copyright 2020 [employer]. All rights reserved. The codes documented in this report are preliminary and upon disposal worker reviewmay be revised to meet current compliance requirements. Recognized by the [employer] for promoting quality in endoscopy Reece Swain DO ENDOSCOPY PROCEDURES Final Res ult from Last [address] [place] [address] Advance Directives For more information, please contact: [phone] Documents on File Type Date Recorded Patient Supervisor Maintenance Expl anation ADVANCE DIRECTIVE 04/16/2024 8:38 PM [...] specifically selected below: No intubation Care Teams Crematorium Operator Relationship Specialty Start Date End Date Ronald Capps MD [address] [facility] [address] [place] [address] PCP - General Family Medicine 05/21/24 Sean Tobin MD [address] [facility] [address] [place] [address] Consulting Physician Cardiology 06/04/24
--- OUTSIDE RECORDS SUMMARY | 2025-01-28 11:39 | XMS_ITS | Encounter Summary ---
Author Organization [facility] Address [address] [place] [address] Phone Care Team Providers Care Auto Fleet Manager Name Role Phone Ronald Capps MD Primary Care Provider + Sean Tobin MD Unavailable Reason for Visit * Reason Onset Date Comments Prior Auth 01/24/2025 Encounter Details Date Type Department Care Team (Late st Contact Info) Description 01/24/2025 Telephone [facility] Metabolic Weight Management [facility] Medical Office [address] [place] [address] Amber Barber CMA Prior Auth Social History Tobacco Use Types Packs/Day Years Used Date Smoking Tobacco: Never Smokeless Tobacco: Never [facility] Utilities Answer Date Recorded In the past 12 months has [employer], gas, oil, or water company threatened to [...] often do you attend chur ch or caodaism services? More than 4 times per year 04/22/2024 Do you belong to any clubs o r organizations such as caodaism groups, unions, fraternal or athletic groups, or [...] any time in the past 12 [facility], were you homeless or living in a retirement (including now)? Patient declined 04/22/2024 Personal Safety [...] Orientation Rogers 04/15/2024 7: 11 PM CDT documented as of this encounter Functional Status * Audit-C Score Answer Date of Assessment Author 3 01/24/2025 2:55 PM CDT Ra keyur Chandler CMA * Question Answer Date of Assessment Author Q1: How often do you have a drink containing alcohol? Monthly or less 01/24/2025 2:55 PM CDT Morgan Chandler CM A Q2: How many drinks containing alcohol do you have on a typical day when you are drinking? 3 or 4 01/24/2025 2:55 PM CDT Morgan Chandler CMA Q3: How often do you have six or more drinks on one occasion? Less than monthly 01/24/2025 2:55 PM CDT Morgan Chandler CM A documented as of this encounter Miscellaneous Notes * Telephone Encounter - Kate Osborn - 01/28/2025 9:59 AM CDT [facility]: [id number] Zepbound 2.5MG/0.5ML pen-injectors Status: pending [facility] * Telephone Encounter - Kate Osborn - 01/24/2025 4:24 PM CDT PA is on hold pending completed clinic note. Will submit when documentation is complete 01/24/2025, 01/27/2025 [employer]: [id number] Zepbound 2.5MG/0.5ML pen-injectors Status: awaiting office note [facility] * Telephone Encounter - Amber Barber CMA - 01/24/2025 4:03 PM CDT ABEL:01/24/25 NOV:03/31/29 PA for Zepbound DX:[id number],Z68.43 documented in this encounter Plan of Treatment Not on file documented as of this encounter Visit Diagnoses Not on filedocumented in this encounter Care Teams Auto Fleet Manager Relationship Specialty Start Date End Date Ronald Capps MD [address] [facility] [address] [place] [address] PCP - General Family Medicine 05/21/24 Sean Tobin MD [address] [facility] [address] [place] [address] Consulting Physician Cardiology 06/04/24 documented as of this encounter
--- OUTSIDE RECORDS SUMMARY | 2025-01-28 11:39 | XMS_ITS | Encounter Summary ---
Author Organization [facility] Address [address] [place] [address] Care Team Providers Care Academic Success Coordinator Name Role Phone Unknown, Vale Primary Care Provider Unavail able Joy Chambers RN Unavailable [phone] Leonel Canchola MD Primary Care Provider Ronald Capps MD Primary Care Provider + Sean Tobin MD Unavailable Encounter Details Date Type Department Care Team (Late st Contact Info) Description 04/06/2024 Orders Only [facility] Information Management [address] [place] [address] Scanning, Provider Social History Tobacco Use Types Packs/Day Years Used Date Smoking Tobacco: Never Assessed Personal Safety Answer Date Recorded Getting School Help Needed Not on file 04/04 Sex and Gender Information Value Date Recorded Sex Assigned at Not on file Legal Sex Male 11:16 AM CDT Gender Identity Male 04/15/2024 7:11 PM CDT Sexual Orientation Rogers 04/15/2024 7: 11 PM CDT documented as of this encounter Plan of Treatment Not on file documented as of this encounter Procedures Procedure Name Priority Date/Time Associated Diagnosis Comments SCAN - RADIOLOGY/IMAGING 04/06/2024 documented in this encounter Results * SCAN - RADIOLOGY/IMAGING (04/06/2024) Anatomical Region Laterality Modality Other us Provider Scanning Final Result documented in this encounter Visit Diagnoses Not on filedocumented in this encounter Care Teams Academic Success Coordinator Relationship Specialty Start Date End Date Unknown, Vale PCP - General 04/04/24 04/15/24 Leonel Canchola MD [address] [place] [address] PCP - General Family Medicine 04/22/24 05/20/24 Ronald Capps MD [address] [facility] [address] [place] [address] PCP - General Family Medicine 05/21/24 Joy Chambers, RN [address] [place] [address] SHOP Outpatient Clinical Trial Head 04/22/24 05/21/24 Sean Tobin MD [address] [place] [address] Consulting Physician Cardiology 06/04/24 documented as of this encounter
[2025-01-28] MEDS: SODIUM CHLORIDE 0.9% IV 1,000 ML 999 ML IV CONT (11:46)
--- NOTE | 2025-01-28 11:54 | ED.SYNCOPE ---
HPI - Syncope General Chief Complaint: Syncope Stated Complaint: syncopy Time Seen by Provider: 01/28/25 11:30 History of Present Illness HPI narrative: Patient is a 39-year-old male who presents to the ER after having an episode of syncope. Got up to let the dog into the room when things started to get black and he lost consciousness. Fell on his chest which is now caused some discomfort. Reports he has felt fatigued and tired over last week and a half. Has had poor oral intake of food/water. He has continued his home medications which includes a diuretic. Has history of cardiomyopathy that is nonischemic. He had an AICD that had to be removed due to sepsis. EF had been in the 60s but he reports most recently it is around 40%. No fevers or chills or sweats. No recent medication changes. Related Data Home Medications ?Medication ?Instructions ?Recorded ?Confirmed ?Last Taken ?Type Accu-Chek Guide test strips 04/06/24 04/06/24 Unknown History Entresto 97 - 103 mg PO BID 04/06/24 04/06/24 04/01/24 History Flonase 50 mcg intranasal BID 04/06/24 04/06/24 04/01/24 History Latuda 40 mg PO BID 04/06/24 04/06/24 04/01/24 History Magnesium (oxide/AA chelate) 400 mg PO BID 04/06/24 04/06/24 04/01/24 History Vitamin B-12 1,000 mg PO DAILY 04/06/24 04/06/24 04/01/24 History Vitamin D3 50,000 units PO DAILY 04/06/24 04/06/24 04/01/24 History Voltaren 1 % topical PRN 04/06/24 04/06/24 04/01/24 History albuterol 2 puff PRN 04/06/24 04/06/24 04/01/24 History albuterol sulfate 2.5 mg TID 04/06/24 04/06/24 04/01/24 History amlodipine 10 mg PO DAILY 04/06/24 04/06/24 04/01/24 History aspirin 81 mg PO BID 04/06/24 04/06/24 04/01/24 History carvedilol 25 mg PO BID 04/06/24 04/06/24 04/01/24 History cetirizine 10 mg PO BID 04/06/24 04/06/24 04/01/24 History clotrimazole 1 mg topical PRN 04/06/24 04/06/24 04/01/24 History cyclobenzaprine 10 mg PO TID 04/06/24 04/06/24 04/01/24 History duloxetine 30 mg PO DAILY 04/06/24 04/06/24 04/01/24 History emtricitabine-tenofovir (TDF) 300 mg PO DAILY 04/06/24 04/06/24 04/01/24 History hydrocodone-acetaminophen 10 mg PO TID 04/06/24 04/06/24 04/01/24 History lorazepam 1 mg PO TID 04/06/24 04/06/24 04/01/24 History potassium Cl-calcium phos-mag 20 meq PO DAILY 04/06/24 04/06/24 04/01/24 History spironolactone 25 mg PO DAILY 04/06/24 04/06/24 04/01/24 History tamsulosin 0.4 mg PO DAILY 04/06/24 04/06/24 04/01/24 History Allergies Allergy/AdvReac Type Severity Reaction Status Date / Time Iodinated Contrast Media Allergy Severe Anaphylactic Verified 01/28/25 10:49 Shock Penicillins Allergy Anaphylaxis Verified 01/28/25 10:49 pneumococcal vaccine Allergy Anaphylaxis Verified 01/28/25 10:49 shellfish derived Allergy Anaphylaxis Verified 01/28/25 10:49 CANDACE Inhibitors AdvReac Cough Verified 01/28/25 10:49 Review of Systems Review of Systems: All systems reviewed & are unremarkable except as noted in HPI and below Constitutional: Constitutional: Reports no additional constitutional complaints ENT: Reports system reviewed and no additional complaints, except as documented Cardiovascular: Cardiovascular: Reports no additional cardiovascular complaints Respiratory: Respiratory: Reports no additional respiratory complaints Gastrointestinal: Gastrointestinal: Reports no additional gastrointestinal complaints Neurologic: Reports system reviewed and no additional complaints, except as documented [facility] Past Medical History Medical History (Updated 01/28/25 @ 13:46 by Augustine Pereira MD) UTI (urinary tract infection) Heart failure Cardiomyopathy Apnea Panic attacks Anxiety and depression Anemia DDD (degenerative disc disease) Osteoarthritis Diverticulosis COPD (chronic obstructive pulmonary disease) History of pacemaker HTN (hypertension) CHF (congestive heart failure) TIA (transient ischemic attack) Sciatica Surgical History Surgical History History of tonsillectomy and adenoidectomy History of intestinal surgery r/t abscess Social History Social History Smoking status: Never smoker Second hand tobacco smoke exposure: Yes Alcohol intake: current Drinks per week: 0 Substance use: never Substance use type: does not use Do You Feel Safe in your Home?: Yes Lack of Transportation: YES Lack of Food: Often True Current Housing: I Do Not Have Housing Concerned About Future Housing: No Difficulty Paying Gas/Electric Bills: YES Difficulty Paying for Meds: YES Currently Unemployed: YES Education: High School Diploma/GED Difficulty w/ Childcare or Family Care: No Spiritual care concerns: Yes (Taoist, last rights upon ) Exam Narrative: GENERAL: Well-appearing, morbidly obese, and in no acute distress. HEAD: Normocephalic, atraumatic. ENT: Mucous membranes moist. Bilateral cerumen impaction and TMs obscured. CHEST: Clear to auscultation. No respiratory distress. HEART: Regular rate and rhythm. Normal peripheral pulses. ABDOMEN: Soft, nontender, nondistended. EXTREMITIES: Normal range of motion. No edema. SKIN: Warm, dry, no rash. NEURO: Alert and oriented x3. PSYCH: Normal mood and affect. Course Course Emergency Course: Ears irrigated and TMs are normal in appearance. Hydrated. Labs unremarkable. Chest x-ray normal. Up and ambulatory without issue. Discharge home. Vital Signs Vital signs: Vital Signs Temperature 98.5 F 01/28/25 10:41 Pulse Rate 90 01/28/25 10:41 Respiratory Rate 15 01/28/25 10:41 Blood Pressure 134/88 01/28/25 10:41 Pulse Oximetry 96 01/28/25 10:41 Oxygen Delivery Room Air 01/28/25 10:41 Temperature 98.5 F 01/28/25 10:41 Pulse Rate 88 01/28/25 11:31 Respiratory Rate 14 01/28/25 11:31 Blood Pressure 116/76 01/28/25 11:31 Pulse Oximetry 94 01/28/25 11:31 Oxygen Delivery Room Air 01/28/25 10:41 Procedures Ear Wax Removal Both Ears: Ear Wax Removal Date: 01/28/25 Results: Re-examined: cerumen removed completely TM Examination: TM(s) intact, normal appearance Ear Canal Exam: atraumatic Patient Tolerated Procedure: well Complications: no problems Technique: ear canal irrigated MDM - Syncope Lab Data 01/28/25 11:07 01/28/25 11:07 Labs: Lab Results 01/28/25 Range/Units 11:07 WBC 8.9 (4.5-10.0) K/mm3 RBC 5.09 (4.6-6.20) M/mm3 Hgb 15.4 (14.0-18.0) g/dL Hct 45.8 (42.0-52.0) % MCV 90.0 (80-100) fl MCH 30.3 (26-34) pg MCHC 33.6 (32-36) g/dl RDW 14.0 (11.5-14.5) % Plt Count 153 (150-375) k/mm3 MPV 12.0 H (7.4-10.4) fl Immature Gran % (Auto) 0.1 (0-0.5) % Neut % (Auto) 64.0 (45.5-73.1) % Lymph % (Auto) 25.2 (18.3-44.2) % [place] % (Auto) 6.2 (2.6-8.5) % Eos % (Auto) 3.9 (0-4.4) % Baso % (Auto) 0.6 (0.2-1.2) % Lymph # (Auto) 2.24 (0.9-3.2) K/mm3 [place] # (Auto) 0.6 (0.1-0.6) K/mm3 Eos # (Auto) 0.4 H (0-0.3) K/mm3 Baso # (Auto) 0.1 (0.0-0.1) K/mm3 Abs Immat Gran (auto) 0.01 (0.00-0.031) K/mm3 Absolute Neuts (auto) 5.7 (1.3-6.7) K/mm3 Absolute Nucleated RBC 0.000 (0.0-0.012) K/mm3 Nucleated RBC % 0.0 (0.0-0.2) % Sodium 133 L (137-145) mmol/L Potassium 4.0 (3.4-5.0) mmol/L Chloride 101 (98-107) mmol/L Carbon Dioxide 26 (22-30) mmol/L Anion Gap 6 (4-12) mmol/L BUN 16 (9-20) mg/dL Creatinine 1.04 (0.7-1.3) mg/dL Estim Creat Clear Calc 130 ml/min Estimated GFR > 60 (59 - ) Glucose 109 (65-110) mg/dL Calcium 9.5 (8.4-10.2) mg/dL Total Bilirubin 1.0 (0.2-1.3) mg/dL AST 26 (17-59) U/L ALT 30 (6-50) U/L Alkaline Phosphatase 51 (38-126) U/L Total Protein 7.3 (6.3-8.2) g/dL Albumin 4.3 (3.5-5.1) g/dL Imaging Data Radiologist's impression: ITS Impressions Chest X-Ray 01/28/25 12:34 IMPRESSION: No focal infiltrate or effusion. ECG Data EKG #1: ECG completion date: 01/28/25 ECG completion time: 10:47 EKG Interpretation: normal rate (89), sinus rhythm, widened QRS, LBBB and left axis Discharge Plan Discharge Clinical Impression: Bilateral impacted cerumen Syncope Qualifiers: Syncope type: unspecified Qualified Code(s): R55 - Syncope and collapse Patient Disposition: Home Condition: Stable Instructions: Syncope (ED) Additional Instructions: Please return to the emergency department if you develop severe and persistent chest pain, difficulty breathing, dizziness, leg swelling or if you are coughing up blood as these can be signs of a medical emergency. Please call your doctor for a follow up appointment to determine the need for further testing. Patient Language: Austrian Prescriptions: No Action aspirin 81 mg PO BID Flonase 50 mcg intranasal BID Entresto 97 - 103 mg PO BID cetirizine 10 mg PO BID cyclobenzaprine 10 mg PO TID duloxetine 30 mg PO DAILY spironolactone 25 mg PO DAILY carvedilol 25 mg PO BID lorazepam 1 mg PO TID amlodipine 10 mg PO DAILY Latuda 40 mg PO BID emtricitabine-tenofovir (TDF) 300 mg PO DAILY Magnesium (oxide/AA chelate) 400 mg PO BID potassium Cl-calcium phos-mag 20 meq PO DAILY tamsulosin 0.4 mg PO DAILY Vitamin B-12 1,000 mg PO DAILY Vitamin D3 50,000 units PO DAILY albuterol 2 puff PRN albuterol sulfate 2.5 mg TID hydrocodone-acetaminophen 10 mg PO TID Voltaren 1 % topical PRN clotrimazole 1 mg topical PRN (DME) Accu-Chek Guide test strips furosemide 40 mg Tablet 40 mg PO DAILY Qty: 30 0RF Jardiance 25 mg tablet 25 mg PO DAILY Qty: 30 0RF (DME) Blood Glucose Test Strip See Rx Instructions .Route Qty: 50 0RF Rx Instructions: As directed (DME) blood-glucose meter [Accu-Chek Guide Glucose Meter] Misc See Rx Instructions .Route Qty: 1 10RF Rx Instructions: As directed (DME) lancets Misc See Rx Instructions .Route Qty: 200 0RF Rx Instructions: As directed Follow-up/Referrals: Kel Marquez MD [Physician] - 1 Week PHYSICIAN,ICT BUSINESS ANALYST [Primary Care Provider] -
[2025-01-28] MEDS: HYDROGEN PEROXIDE 3% SOLN(*SP) 473 ML BOTTLE (12:08)
--- NOTE | 2025-01-28 12:08 | PC.NURSE ---
hydrogen peroxide was used for ear irriagation per EDP Dr. Pereira verbal order. pt tolerated fair, pt had some pain and discomfort. was able to get some clumps out of pt ears
== END 2025-01-28 14:12 | disposition home or self-care (01) ==
PROVIDERS: Emergency Provider Emergency Medicine
DX: R55 Syncope and collapse (principal); H61.23 Impacted cerumen, bilateral; I50.9 Heart failure, unspecified; I11.0 Hypertensive heart disease with heart failure; I42.9 Cardiomyopathy, unspecified; J44.9 Chronic obstructive pulmonary disease, unspecified; E66.01 Morbid (severe) obesity due to excess calories; Z68.43 Body mass index [BMI] 50.0-59.9, adult; M19.90 Unspecified osteoarthritis, unspecified site; F41.9 Anxiety disorder, unspecified; F32.A Depression, unspecified; Z95.0 Presence of cardiac pacemaker; Z86.2 Personal history of diseases of the blood and blood-forming organs and certain disorders involving the immune mechanism; Z86.73 Personal history of transient ischemic attack (TIA), and cerebral infarction without residual deficits; Z87.440 Personal history of urinary (tract) infections; Z77.22 Contact with and (suspected) exposure to environmental tobacco smoke (acute) (chronic); Z79.82 Long term (current) use of aspirin; Z79.899 Other long term (current) drug therapy; Z79.84 Long term (current) use of oral hypoglycemic drugs; I44.0 Atrioventricular block, first degree; I44.7 Left bundle-branch block, unspecified
CPT/HCPCS: 36415; 69209; 71046; 80053; 85025; 93005; 99284; A9270; J7030